=== PATIENT | female | born 1980 | race Hispanic/Latino ===

== ENCOUNTER → 2017-09-29 | Day surgery (SDC) | payer BC ==
[2017-09-24 10:34] LABS: ANION GAP 18.9 mmol/L (8-16); BLOOD UREA NITROGEN 15 mg/dL (7-26); BUN/CREATININE RATIO 19 (6-25); CALCIUM 10.1 mg/dL (8.4-10.2); CARBON DIOXIDE 24 mmol/L (22-29); CHLORIDE 104 mmol/L (98-107); CREATININE, SERUM 0.79 mg/dL (0.57-1.11); EST GLOMERULAR FILTRATION RATE > 60 ML/MIN (60-); GLUCOSE 397 mg/dL (74-118); POTASSIUM 5.9 mmol/L (3.5-5.1); SODIUM 141 mmol/L (136-145)
[~2017-09-29] MED LIST: AMOXICILLIN250 MG PO; BUPIVACAINE 0.25% 30ML SDV INJ ONE; DEXAMETHASONE SOD PHOS INJ 4 MG/ML VIAL ONE; DEXTROSE 5%/LACTATED RINGERS 1,000 ML IV ONE; DIGOXIN250 MCG PO; FENTANYL CITRATE/PF 100MCG/2 ML INJ ONE; FUROSEMIDE20 MG PO; GELATIN SPONGE SZ 100 ONE; HUMALOG100 UNIT/1 SQ; HYDROCODONE/APAP 7.5MG-325MG 1 EA TAB ONE; LEVEMIR100 UNIT/1 SC; LIDOCAINE 1% W/EPINEPHRINE 20 ML VIAL ONE; LIDOCAINE HCL 2% LOCAL INJ 5 ML SDV VIAL INJ ONE; LIDOCAINE JELLY 2% 10ML URO-JET ONE; LOVENOX60 MG/0.6 SC; METHOTREXATE2.5 MG PO; METOCLOPRAMIDE HCL 10 MG/2ML VIAL ONE; METOPROLOL SUCC50 MG PO; MIDAZOLAM HCL 2 MG/2 ML VIAL ONE; NAPROXEN250 MG PO; PLAQUENIL200 MG PO; PREDNISONE5 MG PO; PROPOFOL IV EMULSION 10 MG/ML 20 ML VIAL ONE; SCOPOLAMINE 1.5 MG PATCH ONE; SEVOFLURANE INHAL SOLN 250 ML PEN BTL ONE; SPIRONOLACTONE25 MG PO; TIZANIDINE HCL4 M1 PO
--- NOTE | 2017-09-29 14:55 | Operative Report ---
DATE OF PROCEDURE: September 29, 2017 PREOPERATIVE DIAGNOSIS: Bleeding hemorrhoids. POSTOPERATIVE DIAGNOSIS: Bleeding hemorrhoids. OPERATION PERFORMED: Hemorrhoidectomy. ANESTHESIA: General. COMPLICATIONS: None. ESTIMATED BLOOD LOSS: Minimal. DESCRIPTION OF PROCEDURE: With the patient lying in bed in the lithotomy position under good general anesthesia, the perineum was prepped with Betadine solution and draped in the usual manner. A complete anorectal block was then performed with 0.25% Marcaine and 1% lidocaine with epinephrine. Examination at this point revealed the patient had had a previous hemorrhoidectomy, but there were 2 bulging hemorrhoidal groups, one at the 12 o'clock and the other one at 8 o'clock position. Both of these were individually ligated with 0 chromic. There was also at the 5 o'clock position a group of external hemorrhoids with a clot, which were resected and this was then oversewn with 3-0 chromic sutures. A Gelfoam pack impregnated with Xylocaine was placed. Dressing was applied. The sponge, lap, and needle count was correct. Patient tolerated the procedure well and returned to the recovery room in stable condition. Job#: [id number] [facility]
== END | disposition home or self-care (01) ==
LOC: OR 07:15
PROVIDERS: ATTEND Surgery
DX: K64.4 Residual hemorrhoidal skin tags (principal); E11.9 Type 2 diabetes mellitus without complications; M32.9 Systemic lupus erythematosus, unspecified; I10 Essential (primary) hypertension; Z01.812 Encounter for preprocedural laboratory examination; Z99.81 Dependence on supplemental oxygen; Z86.711 Personal history of pulmonary embolism
CPT/HCPCS: 36415 ×2; 46250; 80048; 82948; 84132; J1100; J2001; J2250; J2765; J7120

== ENCOUNTER → 2017-11-16 | Outpatient (CLI) | payer BC, MEDICARE ==
[~2017-11-16] MED LIST changes: -BUPIVACAINE 0.25% 30ML SDV INJ ONE; -DEXAMETHASONE SOD PHOS INJ 4 MG/ML VIAL ONE; -DEXTROSE 5%/LACTATED RINGERS 1,000 ML IV ONE; -FENTANYL CITRATE/PF 100MCG/2 ML INJ ONE; -GELATIN SPONGE SZ 100 ONE; -HYDROCODONE/APAP 7.5MG-325MG 1 EA TAB ONE; +IOPAMIDOL 370 MG/ML 200 ML INFUS..BTL INJ ONE; -LIDOCAINE 1% W/EPINEPHRINE 20 ML VIAL ONE; -LIDOCAINE HCL 2% LOCAL INJ 5 ML SDV VIAL INJ ONE; -LIDOCAINE JELLY 2% 10ML URO-JET ONE; -METOCLOPRAMIDE HCL 10 MG/2ML VIAL ONE; -MIDAZOLAM HCL 2 MG/2 ML VIAL ONE; -PROPOFOL IV EMULSION 10 MG/ML 20 ML VIAL ONE; -SCOPOLAMINE 1.5 MG PATCH ONE; -SEVOFLURANE INHAL SOLN 250 ML PEN BTL ONE; +SODIUM CHLORIDE 0.9% 50ML 50 ML ONE
--- NOTE | 2017-11-16 20:04 | Diagnostic Imaging Report ---
CT CHEST WITH CONTRAST HISTORY: Chest pain, shortness of breath, history of PEs COMPARISON: None TECHNIQUE: CT scan of the chest WITH intravenous contrast, using PE protocol. The chest was scanned utilizing a multidetector helical scanner from the lung apex through the level of the adrenal glands. Thin section reconstructions were obtained with special concentration on the pulmonary arteries. IV CONTRAST: 100 cc of Isovue-370. PROTOCOL: PE RADIATION DOSE: Total DLP: 501.7 mGy*cm COMPLICATIONS: None DISCUSSION: Lungs: The lungs are well inflated and clear. Vessels: No filling defects are identified within the pulmonary arteries to the segmental levels. Airways: The major airways are clear. Pleura: There is no evidence of pleural effusion or pneumothorax. Heart and mediastinum: The heart and the mediastinum are normal. Abdomen: Limited evaluation of the upper abdomen. Partially visualized inferior vena cava filter. Lymph nodes: No pathologically enlarged lymph node identified. Bones: The visualized bony thorax is within normal limits. Soft tissues: Unremarkable IMPRESSION: No pulmonary embolus. Signed by: Dr. Zack Pappas D.O., M.M.M. on 11/16/2017 7:57 PM
== END ==
LOC: CT 17:34
PROVIDERS: ATTEND Internal Medicine
DX: R06.00 Dyspnea, unspecified (principal)
CPT/HCPCS: 71260; Q9967

== ENCOUNTER 2018-01-16 02:17 | Observation (INO) | payer BC, OTHER ==
[~2018-01-16] VITALS: Ht 162.6 cm; Wt 79.4 kg
[~2018-01-16 02:17] MED LIST changes: -IOPAMIDOL 370 MG/ML 200 ML INFUS..BTL INJ ONE; -SODIUM CHLORIDE 0.9% 50ML 50 ML ONE
--- OUTSIDE RECORDS SUMMARY | 2018-01-16 02:20 | XMS REPORT ---
Author Author [facility] Address Unknown Phone Unavailable Care Team Providers Care Survey Supervisor Name Role Phone BRENDAN AMMY PALOMO Unavailable NAYE SHAY Unavailable Unavailable BEAU FOWLER Unavailable Unavailable Problems This patient has no known problems. Allergies, Adverse Reactions, Alerts This patient has no known allergies or adverse reactions. Medications This patient has no known medications. Encounters Start Date/Time End Date/Time Encounter Type Admission Type Attending Clinicians Care Facility Care Department Encounter ID 2018-01-14 09:46:00 Inpatient [facility] MED [id number] Results Test Description Test Time Test Comments Text Results Atomic Results Result Comments CT CHEST W [place] [address] Patient Name: FRANCES BULL MR #: [id number] : 1980 Age/Sex: 37/F Req #: [id number] Adm Physician: Ordered by: NAYE SHAY MD Report #: [id number] Location: CT Room/Bed: Procedure: [id number] CT/CT CHEST W Exam Date: Exam Time: REPORT STATUS: Signed CT CHEST WITH CONTRAST HISTORY: Chest pain, shortness of breath, history of PEs COMPARISON: None TECHNIQUE: CT scan of the chest WITH intravenous contrast, using PE protocol. The chest was scanned utilizing a multidetector helical scanner from the lung apex through the level of the adrenal glands. Thin section reconstructions were obtained with special concentration on the pulmonary arteries. IV CONTRAST: 100 cc of Isovue-370. PROTOCOL: PE RADIATION DOSE: Total DLP: 501.7 mGy*cm COMPLICATIONS: None DISCUSSION: Lungs: The lungs are well inflated and clear. Vessels: No filling defects are identified within the pulmonary arteries to the segmental levels. Airways: The major airways are clear. Pleura: There is no evidence of pleural effusion or pneumothorax. Heart and mediastinum: The heart and the mediastinum are normal. Abdomen: Limited evaluation of the upper abdomen. Partially visualized inferior vena cava filter. Lymph nodes: No pathologically enlarged lymph node identified. Bones: The visualized bony thorax is within normal limits. Soft tissues: Unremarkable IMPRESSION : No pulmonary embolus. Signed by: Dr. Lynn Pappas D.O., M.M.M. on 11/16/2017 7:57 PM Dictated By: LYNN PAPPAS DO 56 Transcribed By: NICOLE on 11/16/171956 COPY TO: NAYE SHAY MD Stress Test - Treadmill ONLY [place] [address] Patient Name : FRANCES BULL MR #: [id number] : 1980 Age/Sex: 37/F Adm Physician : NAYE SHAY MD Admit Date : 09/10/17 Location : MED/SURG Room/Bed : [facility] REPORT: Cardiology Report DATE OF STUDY: September 15, 2017 PROCEDURE TITLE Rest stress single isotope SPECT imaging with pharmacologic stress and gated SPECT imaging. INDICATIONS: Chest pain. PROCEDURE: Pharmacologic stress test was performed with regadenoson, per protocol. The heart rate was 76 beats per minute and increased to 103 beats per minute during the regadenoson infusion. The rest blood pressure was 113/77 and decreased to 98/71 mmHg, which is a normal response. The patient denies developing any significant symptoms. The resting electrocardiogram demonstrated normal sinus rhythm. There were no ST segment changes consistent with myocardial ischemia. Myocardial perfusion imaging was performed at rest following the injection of 9 mCi of tetrofosmin. At peak pharmacologic effect the patient was injected with 32.8 mCi of tetrofosmin. Gated post stress tomographic imaging was performed. FINDINGS: The overall quality of study is fair. Left ventricular cavity is noted to be normal on the rest and stress studies. SPECT images demonstrate homogenous tracer distribution throughout the myocardium. Gated SPECT imaging reveals normal myocardial thickening and wall motion. The left ventricular ejection fraction was found to be 69%. IMPRESSION: Myocardial perfusion imaging is normal. Overall left ventricular systolic function was normal without regional wall motion abnormalities. Job#: [id number] Signature Date Dictated By: NAYE SHAY MD Transcribed By: [facility] on 09/15/17 <Electronically signed by NAYE SHAY MD> <<Signature on File>>09/28/17 7703 COPY TO: CHEST SINGLE (PORTABLE) [place] [address] Patient Name: FRANCES BULL MR #: [id number] : 1980 Age/Sex: 37/F Req #: [id number] Adm Physician: NAYE SHAY MD Ordered by: NAYE SHAY MD Report #: [id number] Location: MED/SURG Room/Bed: [facility] Procedure: [id number] DX/CHEST SINGLE (PORTABLE) Exam Date: 09/14/17 Exam Time: 1700 REPORT STATUS: Signed PROCEDURE: A single AP view of the chest. COMPARISON: The 09/10 INDICATIONS: LINE POSITION, CHEST PAIN FINDINGS: Lines/ tubes: Right upper extremity PICC in place with tip overlying cavoatrial junction. Lungs: The lungs are well inflated and clear. There is no evidence of pneumonia or pulmonary edema. Pleura: There is no pleural effusion or pneumothorax. Heart and mediastinum: The heart and the mediastinum are unremarkable. Bones: No acute bony abnormality. IMPRESSION: 1. No acute cardiopulmonary disease. 2. Satisfactory position of the right PICC line. No visible pneumothorax. Dictated by: Vikas Springer M.D. on 09/14/2017 at 17:31 Electronically approved by: Vikas Springer M.D. on 09/14/2017 at 17:31 Dictated By: VIKAS SPRINGER MD 30 Transcribed By: IRMA on 09/14/171730 COPY TO: NAYE SHAY MD VQ LUNG SCAN VENT PERFUSION [place] [address] Patient Name: FRANCES BULL MR #: [id number] : 1980 Age/Sex: 37/F Req #: [id number] Adm Physician: NAYE SHAY MD Ordered by: NAYE SHAY MD Report #: [id number] Location: MED/SURG Room/Bed: [facility] Procedure: [id number] NM/VQ LUNG SCAN VENT PERFUSION Exam Date: Exam Time: REPORT STATUS: Signed EXAM: VENTILATION PERFUSION LUNG SCAN INDICATION: 37 F with chest pain and SOB. CAGE. Has had 3 cardiac catheterizations. Was told had pulmonary hypertension although recent echocardiogram does not confirm pulmonary hypertension. 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 COMPARISON: Chest radiography 09/10/2017 DISCUSSION: Xenon-133 gas 20 mCi was administered via inhalation. Dynamic images of the lungs in the posterior projection were obtained through single breath and washout phases. Distribution of tracer activity appears physiologic throughout the lungs. Washout is very mildly delayed without evidence of air trapping. Perfusion images of the lungs in multiple projections were obtained following intravenous administration of 5.6 mCi of Tc-99m MAA. Distribution of tracer appears physiologic throughout the lungs. There are no segmental perfusion defects of any size. The contours of the lungs are well demarcated. The cardiomediastinal silhouette is unremarkable. IMPRESSION: 1. Scan findings represent a VERY LOW probability for acute pulmonary embolic disease based on the PIOPED II criteria. 2. Normal lung perfusion study excludes chronic thromboembolic pulmonary hypertension. 3. No pulmonary infarcts. 4. Ventilation study suggests very mild obstructive lung disease. Signed by: Dr. Sandra Saini M.D. on 09/13/2017 3:01 PM Dictated By: SANDRA SAINI MD 1501 Transcribed By: NICOLE on 09/13/17 1501 COPY TO: NAYE SHAY MD CHEST SINGLE (PORTABLE) [place] [address] Patient Name: FRANCES BULL MR #: [id number] : 1980 Age/Sex: 37/F Req #: [id number] Adm Physician: NAYE SHAY MD Ordered by: BEAU FOWLER MD Report #: [id number] Location: [facility] Room/Bed: [place] [address] Procedure: [id number] DX/CHEST SINGLE ( PORTABLE) Exam Date: 09/10/17 Exam Time: 2221 REPORT STATUS: Signed EXAM: CHEST SINGLE (PORTABLE), AP 1 view DATE: 2016 10:27 PM Time stamp on exam: 2222 hours INDICATION: PICC placement COMPARISON: AP view of the chest September 09, 2017 FINDINGS: LINES/TUBES: Interval placement of right approach PICC that terminates at the atriocaval junction. LUNGS: No consolidations or edema. PLEURA: No effusions or pneumothorax. HEART AND MEDIASTINUM: Normal size and contour. BONES AND SOFT TISSUES: No acute findings. IMPRESSION: Interval placement of right approach PICC that terminates at the atriocaval junction. Signed by: Dr. Nabeel Morfin M.D. on 09/10/2017 10:53 PM Dictated By : NABEEL MORFIN MD 52 Transcribed By: NICOLE on 09/10/172252 COPY TO: BEAU FOWLER MD CT BRAIN WO [place] [address] Patient Name: FRANCES BULL MR #: [id number] : 1980 Age/Sex: 37/F Req #: [id number] Adm Physician: Ordered by: BEAU FOWLER MD Report #: [id number] Location: ER Room/Bed: Procedure: [id number] CT/CT BRAIN WO Exam Date: 09/09/17 Exam Time: 2050 REPORT STATUS: Signed EXAMINATION: Head CT without contrast. HISTORY:Syncope. COMPARISON:None. TECHNIQUE: Multidetector axial images were obtained from the foramen magnum to the vertex without contrast. The images were reconstructed using brain and bone algorithms. Thin section brain images were reformatted into coronal and sagittal planes. Intravenous contrast: None IMAGE QUALITY: Acceptable. FINDINGS: Skull/scalp: No abnormality. Parenchyma: No abnormal density. No acute hemorrhage, mass or acute major vascular territorial infarct. Arteries: No density suggestive of thrombosis. Dural sinuses: No abnormal density suggestive of thrombosis. Ventricles: No hydrocephalus or displacement. Extra-axial spaces: No abnormal density. Brain volume: Normal for age. Craniocervical junction: No mass, Chiari malformation, or basilar invagination. Sella: No mass. Paranasal/ mastoid sinuses: Imaged portions unremarkable. IMPRESSION: No intracranial abnormality. Signed by: Dr. Cha Stapleton M.D. on 2016 9:03 PM Dictated By: CHA STAPLETON MD 02 Transcribed By: NICOLE on 09/09/172102 COPY TO: BEAU FOWLER MD CHEST SINGLE (PORTABLE) [place] [address] Patient Name: FRANCES BULL MR #: [id number] : 1980 Age/Sex: 37/F Req #: [id number] Adm Physician: Ordered by: BEAU FOWLER MD Report #: [id number] Location: ER Room/Bed: ___ Procedure: [id number] DX/CHEST SINGLE (PORTABLE) Exam Date: 09/09/17 Exam Time: 2048 REPORT STATUS: Signed EXAM: CHEST SINGLE (PORTABLE), AP 1 view DATE: 09/09/2017 8:02 PM Time stamp on exam : 2041 hours INDICATION: Shortness of breath, chest pain COMPARISON: None FINDINGS: LINES/TUBES: None LUNGS: No consolidations or edema. PLEURA: No effusions or pneumothorax. HEART AND MEDIASTINUM: Normal size and contour. BONES AND SOFT TISSUES: No acute findings. IMPRESSION: No acute thoracic abnormality. Signed by: Dr. Nabeel Morfin M.D. on 09/09/2017 9:30 PM Dictated By: NABEEL MORFIN MD 29 Transcribed By: NICOLE on 2129 COPY TO: BEAU FOWLER MD
[2018-01-16 03:22] LABS: BASOPHILS % 0.3 % (0.0-1.0); EOSINOPHILS # (AUTO) 0.1 (0.0-0.4); EOSINOPHILS % 1.2 % (0.0-6.0); HEMOGLOBIN 13.7 g/dL (12.0-16.0); LYMPHOCYTES # (AUTO) 2.2 (1.0-3.2); LYMPHOCYTES % 32.2 % (18.0-39.1); MEAN CORPUSCULAR HEMOGLOBIN 29.2 pg (28-32); MEAN CORPUSCULAR HGB CONC 35.1 g/dL (31-35); MEAN CORPUSCULAR VOLUME 83.2 fL (81-99); MONOCYTES # (AUTO) 0.3 (0.2-0.8); MONOCYTES % 4.2 % (4.4-11.3); NEUTROPHILS # (AUTO) 4.3 (2.1-6.9); NEUTROPHILS % 61.8 % (38.7-80.0); PLATELET COUNT 308 x10e3/uL (140-360); RED BLOOD COUNT 4.69 x10e6/uL (3.6-5.1); RED CELL DISTRIBUTION WIDTH 12.2 % (11.7-14.4)
[2018-01-16 03:29] LABS: CLARITY,URINE CLEAR (CLEAR); COLOR,URINE YELLOW (YELLOW)
[2018-01-16 03:30] LABS: BILIRUBIN,URINE NEGATIVE (NEGATIVE); KETONES,URINE 1+ (NEGATIVE); LEUKOCYTE ESTERASE ,URINE NEGATIVE (NEGATIVE); NITRITE,URINE NEGATIVE (NEGATIVE); PROTEIN,URINE DIPSTICK NEGATIVE (NEGATIVE); URINE UROBILINOGEN 0.2 mg/dL (0.2 - 1)
[2018-01-16 03:34] LABS: INR 0.96
[2018-01-16 03:35] LABS: PARTIAL THROMBOPLASTIN TIME 24.9 seconds (23.8-35.5)
[2018-01-16 03:39] LABS: RBC,URINE 0-5 /HPF (0-5)
[2018-01-16 03:40] LABS: BACTERIA,URINE MANY /HPF; EPITHELIAL CELLS,URINE FEW /LPF
--- NOTE | 2018-01-16 03:40 | Diagnostic Imaging Report ---
EXAM: CHEST SINGLE (PORTABLE), AP 1 view INDICATION: Chest pain COMPARISON: AP view of the chest September 14, 2017 FINDINGS: LINES/TUBES: None LUNGS: No consolidations or edema. PLEURA: No effusions or pneumothorax. HEART AND MEDIASTINUM: Normal size and contour. BONES AND SOFT TISSUES: No acute findings. IMPRESSION: No acute thoracic abnormality. Signed by: Dr. Nu Morfin M.D. on 01/16/2018 3:36 AM
[2018-01-16 03:44] LABS: ALANINE AMINOTRANSFERASE 30 IU/L (0-55); ALBUMIN 3.9 g/dL (3.5-5.0); ALBUMIN/GLOBULIN RATIO 0.8 (0.8-2.0); ALKALINE PHOSPHATASE 106 IU/L (40-150); ANION GAP 17.4 mmol/L (8-16); BLOOD UREA NITROGEN 11 mg/dL (7-26); BUN/CREATININE RATIO 14 (6-25); CALCIUM 9.9 mg/dL (8.4-10.2); CARBON DIOXIDE 22 mmol/L (22-29); CHLORIDE 94 mmol/L (98-107); CREATINE KINASE 160 IU/L (29-168); CREATININE, SERUM 0.77 mg/dL (0.57-1.11); EST GLOMERULAR FILTRATION RATE > 60 ML/MIN (60-); POTASSIUM 3.4 mmol/L (3.5-5.1); SODIUM 130 mmol/L (136-145)
[2018-01-16 03:49] LABS: GLUCOSE 475 mg/dL (74-118)
[2018-01-16] MEDS ORDERED: ONDANSETRON HCL INJ 2 MG/ML VIAL IV STA (03:58)
[2018-01-16] MEDS ORDERED: INSULIN REGULAR, HUMAN 100 UNIT/1 ML 3ML VIAL SQ ONE (04:00)
[2018-01-16] MEDS ORDERED: NITROGLYCERIN 2% OINT 1 GM PKT TOP ONE (04:00)
--- NOTE | 2018-01-16 06:11 | Diagnostic Imaging Report ---
EXAM: VQ LUNG SCAN VENT PERFUSION DATE: 01/16/2018 12:00 AM Time stamp on exam: 0555 hours INDICATION: Chest pressure COMPARISON: AP view of the chest January 16, 2018 FINDINGS: Ventilation images of the lungs were obtained following administration of 13 mCi of xenon-133 via aerosol. Distribution of tracer activity is mildly irregular throughout the lungs. No segmental ventilatory defects are identified. Normal washout. Perfusion images of the lungs in multiple projections were obtained following intravenous administration of 6mCi of Tc-99m MAA. Distribution of tracer activity is mildly irregular throughout the lungs. There are no segmental perfusion defects of any size. The perfusion images are well matched to the aerosol images. The cardiac silhouette is unremarkable. IMPRESSION: Scan findings represent a very low probability for acute pulmonary embolic disease based on the PIOPED II criteria. Signed by: Dr. Nu Morfin M.D. on 01/16/2018 6:08 AM
[2018-01-16] MEDS ORDERED: TRAMADOL HCL 50 MG TAB PO ONE (06:15)
[2018-01-16] MEDS ORDERED: TRAMADOL HCL 50 MG TAB PO PRN (06:30)
[2018-01-16] MEDS ORDERED: ONDANSETRON HCL INJ 2 MG/ML VIAL IV PRN (06:30)
[2018-01-16] MEDS ORDERED: DEXTROSE 50% SYRINGE 50 ML IV PRN (06:30)
--- OUTSIDE RECORDS SUMMARY | 2018-01-16 06:31 | XMS REPORT | Clinical Summary ---
Author Author [facility] Address Unknown Phone Unavailable Care Team Providers Care Land Acquisition Specialist Name Role Phone El Regan MD PCP Allergies Active Allergy Reactions Severity Noted Date Comments Riociguat Other (See Comments) 07/19/2017 Rash on entire body, shortness of breathing, chest discomfort Sulfamethoxazole-Trimetho Swelling, Rash Low 02/23/2016 Rash over entire body, prim swelling of throat. Side effect: yeast infection Ibuprofen Swelling 02/23/2016 Swelling of throat, chest discomfort. Hydrocodone-Acetaminophen Itching, GI Intolerance Medium 07/20/2017 Itching over entire body, nausea, dizziness Pineapple Swelling Medium 02/24/2016 Swelling of throat and mouth blisters. Alprazolam Other (See Comments) 02/23/2016 Few years ago, patient took six tablets of alprazolam (unknown dose) every 2 hours for a panic attack which resulted in loss of consciousness. Current Medications Prescription Sig. Disp. Refills Start End Date Status Date enoxaparin (LOVENOX) 80 Inject 80 mg under the Active mg/0.8 mL syringe skin every 12 (twelve) hours. digOXIN (LANOXIN) 250 mcg Take 250 mcg by mouth Active tablet daily. tiZANidine (ZANAFLEX) 4 Take 4 mg by mouth every Active MG tablet 8 (eight) hours as needed for muscle spasms. hydroxychloroquine Take 200 mg by mouth Active (PLAQUENIL) 200 mg tablet daily. lidocaine (XYLOCAINE) 2 % Apply 1 application Active jelly topically 4 (four) times a day as needed for mild pain (lichen sclerosus). triamcinolone (KENALOG) Apply 1 application Active 0.1 % ointment topically 3 (three) times a day as needed for irritation (lichen sclerosus). SUMAtriptan (IMITREX) 50 Take 50 mg by mouth once Active MG tablet as needed for migraine. May repeat in 2 hours if unresolved. Do not exceed 200 mg in 24 hours. metoprolol succinate XL Take 50 mg by mouth 2 Active (TOPROL-XL) 50 mg 24 hr (two) times a day. tablet insulin 70/30 NPH and Inject 15 Units under the 10 mL 12 12/25/19 Active regular human (HumuLIN skin 2 (two) times a day 18 18 70/30) 100 unit/mL before meals for 30 days. (70-30) injection metoprolol tartrate Take 50 mg by mouth 2 10/14/19 Discontin (LOPRESSOR) 25 MG tablet (two) times a day. 18 ued traMADol (ULTRAM) 50 mg Take 50 mg by mouth 3 04/16/20 Discontin tablet (three) times a day as 17 ued needed for moderate pain. HYDROcodone-acetaminophen Take 1 tablet by mouth 04/16/20 Discontin (NORCO) 7.5-325 mg per every 6 (six) hours as 17 ued tablet needed for moderate pain. methotrexate 2.5 MG Take 30 mg by mouth once 06/11/20 Discontin tablet a week. 17 ued insulin NPH and regular Inject 30 units with 20 mL 1 04/30/20 Discontin human (HumuLIN 70/30) 100 breakfast and 40 units 17 17 ued unit/mL (70-30) injection with dinner. insulin syringe-needle Injections twice a day. 100 each 1 04/30/20 05/03/20 Discontin U-100 (BD INSULIN SYRINGE 17 17 ued ULTRA-FINE) 1 mL 31 gauge x 5/16 syringe insulin NPH and regular Inject 40 units with 20 mL 1 05/03/20 Discontin human (HumuLIN 70/30) 100 breakfast and 60 units 17 17 ued unit/mL (70-30) injection with dinner. venlafaxine XR Take 1 capsule (75 mg 30 capsule 0 05/04/20 06/03/20 (EFFEXOR-XR) 75 MG 24 hr total) by mouth every 17 17 capsule morning for 30 days. insulin syringe-needle Injections twice a day. 100 each 1 05/03/20 08/19/20 Discontin U-100 (BD INSULIN SYRINGE 17 17 ued ULTRA-FINE) 1 mL 31 gauge x 5/16 syringe naproxen (NAPROSYN) 500 1 04/16/20 07/23/20 Discontin MG tablet 17 17 ued predniSONE (DELTASONE) 5 TK 1 T PO QD 0 05/04/20 06/11/20 Discontin mg tablet 17 17 ued hydroxychloroquine TK 1 T PO BID 0 05/04/20 06/11/20 Discontin (PLAQUENIL) 200 mg tablet 17 17 ued sildenafil (REVATIO) 20 Take 0.5 tablets (10 mg 135 tablet 3 06/11/20 08/19/20 Discontin mg tabletIndications: total) by mouth 3 (three) 17 17 ued Chest pain, unspecified times a day. type, Pulmonary hypertension spironolactone Take 1 tablet (25 mg 90 tablet 3 06/11/20 12/24/19 Discontin (ALDACTONE) 25 MG total) by mouth daily. 17 18 ued tabletIndications: Chest pain, unspecified type, Pulmonary hypertension methotrexate 2.5 MG Take 12 tablets (30 mg 48 tablet 0 06/11/20 Discontin tablet total) by mouth once a 17 17 ued week for 30 days. hydroxychloroquine Take 1 tablet (200 mg 180 tablet 3 06/11/2009/09 (PLAQUENIL) 200 mg tablet total) by mouth 2 (two) 17 17 times a day for 90 days. predniSONE (DELTASONE) 5 Take 1 tablet (5 mg 90 tablet 3 06/11/20 mg tablet total) by mouth daily for 17 17 90 days. ondansetron (ZOFRAN) 8 MG Take 8 mg by mouth every 08/19/20 Discontin tablet 8 (eight) hours as needed 17 ued for nausea or vomiting. promethazine (PHENERGAN) Take 25 mg by mouth every 08/19/20 Discontin 25 MG tablet 6 (six) hours as needed 17 ued for nausea or vomiting. acetaminophen (TYLENOL) Take 2 tablets (650 mg 20 tablet 0 07/23/20 08/19/20 Discontin 325 MG tablet total) by mouth every 6 17 17 ued (six) hours as needed for mild pain for up to 30 days. bisacodyl (DULCOLAX) 10 Insert 1 suppository (10 10 0 07/23/2008/19 Discontin mg suppository mg total) into the rectum suppository 17 17 ued daily as needed for constipation for up to 30 days. methotrexate 2.5 MG TAKE 12 TABLETS BY MOUTH 48 tablet 0 08/31/20 tablet ONCE A WEEK 17 17 LEVEMIR FLEXTOUCH 100 INJECT 30 UNITS SQ QHS 0 09/17/20 12/24/19 Discontin unit/mL (3 mL) insulin 17 18 ued pen metoprolol succinate XL TK 1 T PO BID 3 09/16/20 12/24/19 Discontin (TOPROL-XL) 50 mg 24 hr 17 18 ued tablet furosemide (LASIX) 20 mg TK 1 T PO QD 0 09/17/20 12/24/19 Discontin tablet 17 18 ued dicyclomine (BENTYL) 20 Take 1 tablet (20 mg 60 tablet 0 10/14/19 mg tablet total) by mouth 2 (two) 18 18 times a day for 30 days. insulin detemir U-100 Inject 30 Units under the 12/25/19 Discontin (LEVEMIR) 100 unit/mL skin nightly. 18 ued injection ciprofloxacin HCl (CIPRO) Take 1 tablet (250 mg 6 tablet 0 12/25/19 12/28/19 250 MG tabletIndications: total) by mouth 2 (two) 18 18 Chest pain in adult times a day for 3 days. Active Problems Problem Noted Date Uncontrolled type 2 diabetes mellitus 12/24/2017 E. coli UTI (urinary tract infection) 12/24/2017 Chest pain, pleuritic 12/23/2017 CAGE (dyspnea on exertion) 08/19/2017 Overview: Patient here for the first time for evaluation of CAGE. Sent by Dr Greenberg. Dr Greenberg evaluated her extensively for sob, CTEPH or PH. Overall everything came out to be equivocal. She did exercise heart cath and that did show exercise related PH but increased wedge and no gradient across pulmonary vasculature. This patient also carries diagnosis of PE X3, DVT X5. On exam : no specific signs to suggest any obvious disease process Also has diagnosis of RA and Lupus. She is on methotrexate 30 mg weekly and prednisone She is in [facility] L ast Assessment & Plan: Overall, I do not believe that she has significant chronic PE disease, if at all may be level. I could not see PA gram images. Portal didn't open, but called and discussed with Dr Greenberg and based on what he said. She was tried on adempas, a trial but didn't tolerate it well and no improvement noticed either and was stopped. Dr Greenberg thinks she may possibly have CTED. However, that still doesn't explain her out of proportion dyspnea. For the last few months she has been having cough as well I am not sure, based on the interview, her answers do not make sense. SOB laying in bed. Doesn't qualify as orthopnea or PND. 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 However, this doesn't undermine her original CT diseases. RTC In 4 weeks Pulmonary hypertension 07/20/2017 Uncontrolled pain 04/26/2017 Hyperglycemia 04/25/2017 Pulmonary hypertension associated with systemic disorder 02/27/2016 Overview: Has CTD and prior PE's. Has been evaluated on multiple occasions. She has had exercise cath showing no gradient. Report in epic Last Assessment & Plan: Doesn't clearly meet requirements for pharmacological therapy However, diagnosis needs to be established Will get CPET once the initial testing results are negative Chest pain 02/24/2016 Palpitations 02/24/2016 Syncope 02/24/2016 Type 2 diabetes mellitus with hyperglycemia 02/24/2016 SLE (systemic lupus erythematosus) 02/24/2016 Hypokalemia 02/24/2016 Encounters Date Type Specialty Care Team Description 12/23/2017 Emergency General Internal Medicine Leon Alva MD Chest pain in adult - Lynda Leon MD (Primary Dx); 12/24/2017 Hyperglycemia without ketosis; Pulmonary hypertension associated with systemic disorder 12/23/2017 Telephone Cardiology Chaya Martinez, RN Return Call 10/14/2017 Emergency Emergency Medicine Rochelle Cadet, Lower abdominal pain DO (Primary Dx) 09/23/2017 Orders Only Cardiology Chester Greenberg MD 09/09/2017 Documentation Pulmonology Adal Castillo MD 08/20/2017 Refill Cardiology Chester Greenberg MD Med Refill 08/19/2017 [facility] Pulmonology Adal Castillo MD CAGE (dyspnea on Encounter exertion); Other pulmonary embolism without acute cor pulmonale, unspecified chronicity 08/19/2017 Office Visit Pulmonology Adal Castillo MD CAGE (dyspnea on exertion) (Primary Dx); Other pulmonary embolism without acute cor pulmonale, unspecified chronicity; Pulmonary hypertension associated with systemic disorder 08/09/2017 Orders Only Pulmonology Keely Ma, SOB ( shortness of breath) RT (Primary Dx) 07/21/2017 Procedure Pass Procedural Cardiology 07/21/2017 Surgery Procedural Cardiology Lavelle Chamberlain MD Cv right heart cath [13777 (CPT )] 07/19/2017 [facility] General Internal Medicine Heron Donald - Encounter MD Lane 07/23/2017 Etelvina aGbriel MD 06/11/2017 Office Visit Cardiology Chester Greenberg MD Chest pain, unspecified type (Primary Dx); Pulmonary hypertension 05/17/2017 Telephone Cardiology Nigel Armstrong MA Medication Question (Adempas) 05/10/2017 Telephone Cardiology Tomer Jordan LVN Appointment 05/10/2017 Orders Only Cardiology Chester Greenberg MD Pulmonary hypertension (Primary Dx) 04/24/2017 Hospital Cardiology Markus Reynolds MD Hyperglycemia ( Primary - Encounter Merly Wiggins MD Dx); 05/03/2017 Mariana Marquez, Pulmonary hypertension MD associated with systemic Josiah Dietrich MD disorder 04/24/2017 Telephone Cardiology Sandra Ramsey MD Hyperglycemia 04/16/2017 Office Visit Cardiology Chester Greenberg MD Pulmonary hypertension (Primary Dx) after 01/15/2017 Immunizations Name Dates Previously Given Next Due FLUCELVAX QUAD PF (0.5mL 07/20/2017 syringe) Pneumococcal Conjugate 07/23/2017 13-[facility]ent Social History Tobacco Use Types Packs/Day Years Used Date Never Smoker Smokeless Tobacco: Never Used Alcohol Use Drinks/Week oz/Week Comments No Sex Assigned at Date Recorded Not on file Last Filed Vital Signs Vital Sign Reading Time Taken Blood Pressure 119/71 12/24/2017 12:29 PM CDT Pulse 75 12/24/2017 12:29 PM CDT Temperature 36.7 C (98.1 F) 12/24/2017 12:29 PM CDT Respiratory Rate 14 12/24/2017 12:29 PM CDT Oxygen Saturation 91% 12/24/2017 2:53 PM CDT Inhaled Oxygen - - Concentration Weight 79.3 kg (174 lb 14.4 oz) 12/23/2017 11:20 PM CDT Height 162.6 cm (5' 4") 12/23/2017 11:20 PM CDT Body Mass Index 30.02 12/23/2017 11:20 PM CDT Plan of Treatment Health Maintenance Due Date Last Done Comments FOOT EXAM 1989 OPHTHALMOLOGY EXAM 1989 PAP SMEAR 2000 INFLUENZA VACCINE 05/04/2018 07/20/2017 Implants Implanted Type Area Finger Buffs Assembler Device Expiration Model / Identifier Date Serial / Lot Device Vasclr Clsr Vasoactive Surgical DAIG MASON [id number] / Intstnl Peptd 6fr Angio-Seal - Implants; / [id number] Expanders; Implanted: 02/26/2016 (Quantity not Extenders; on file) Surgical Wires Procedures Procedure Name Priority Date/Time Associated Diagnosis Comments ECHOCARDIOGRAM 2D Routine 12/23/2017 Results for this COMPLETE W MMODE SPECTRAL 10:39 PM CDT procedure are in the [facility] (21490) results section. CV CARDIAC EVENT MONITOR Routine 09/23/2017 12:00 AM ELECTRICAL SERVICE TECHNICIAN CV RIGHT HEART CATH Routine 07/21/2017 Results for this 1:20 PM CDT procedure are in the results section. ECHOCARDIOGRAM 2D Routine 07/20/2017 Results for this COMPLETE W MMODE SPECTRAL 11:02 AM CDT procedure are in the [facility] (40431) results section. ECHOCARDIOGRAM 2D Routine 04/26/2017 Results for this COMPLETE W MMODE SPECTRAL 10:42 AM CDT procedure are in the [facility] (77853) results section. after 01/15/2017 Results * Homocystine, plasma (12/24/2017 6:30 PM) Component Value Ref Range Homocysteine 8.0 0.0 - 15.0 umol/L Comment: The risk for coronary vascular disease increases progressively with homocysteine concentration. A 3.4 times greater risk is associated with a homocysteine concentration of greater than 15.8 umol/L as compared to a concentration below 14.1 umol/L. Specimen Performing Laboratory Plasma specimen [facility] [place] [address] * Prothrombin mutation, factor II, by PCR (12/24/2017 6:30 PM) Component Value Ref Range Prothrombin gene mutation Normal Normal Prothrombin gene mutation See link below for PDF Lab ReportComment: Specimen Performing Laboratory Blood [facility] [place] [address] * Functional protein S (12/24/2017 6:30 PM) Component Value Ref Range Functional protein S 120 58 - 160 % Comment: Functional Protein S performed. If result is decreased Total and Free Protein S Antigen will be performed. Specimen Performing Laboratory Blood [facility] [place] [address] * Functional protein C (12/24/2017 6:30 PM) Component Value Ref Range Functional protein C 156 70 - 165 % Specimen Performing Laboratory Blood [facility] [place] [address] * Lupus anticoagulant panel (12/24/2017 6:30 PM) Component Value Ref Range Prothrombin time 12.7 12.0 - 15.0 sec INR 0.9 Comment: The International Normalized Ratio (INR) is a therapeutic monitoring tool for patients who are stable on oral anticoagulant therapy. An INR of 2.0-3.0 is suggested for deep vein thrombosis/pulmonary embolism. PTT 25.4 23.0 - 36.0 sec Comment: PTT therapeutic range for unfractionated heparin is 61.0-112.0 seconds which corresponds to Anti-Xa 0.3-0.7 U/ml. PTT lupus anticoagulant 26.3 (L) 27.0 - 38.0 sec Comment: Lupus anticoagulant (LA) panel consists of PT, PTT, PTT-LA, and DRVVT. If the PTT-LA is above the normal range, the hexagonal phospholipid will be performed. If the DRVVT is above the normal range, the DRVVC confirmatory test will be performed. A normal result for both the DRVVT and the PTT-LA means the patient is negative for lupus anticoagulant. The patient is considered positive for lupus anticoagulant if either the Ratio SCR/CONF or the hexagonal phospholipid is high (positive) on two occassions at least six weeks apart. Clinical confirmation is also required for diagnosis. DRVVT 32.3 29.0 - 46.0 sec Specimen Performing Laboratory Blood [facility] DEPARTMENT PATHOLOGY [facility] MEDICINE [address] [place] [address] * Factor V leiden by PCR (12/24/2017 6:30 PM) Component Value Ref Range Factor V Leiden Normal Factor V Leiden See link below for PDF Lab ReportComment: Specimen Performing Laboratory Blood [facility] [place] [address] * Antithrombin III level (12/24/2017 6:30 PM) Component Value Ref Range Antithrombin III 116 80 - 130 % Specimen Performing Laboratory Blood [facility] [place] [address] * POC glucose (12/24/2017 5:28 PM) Only the most recent of 66 results within the time period is included. Component Value Ref Range POC glucose 309 (H) 65 - 99 mg/dL Comment: [facility] Notified RN Meter ID: [id number] Medicaid Collection Specialist: Abilio Littlejohn Specimen Performing Laboratory [facility] PATHOLOGY [facility] MEDICINE [address] [place] [address] * Cardiolipin antibodies (12/24/2017 4:25 PM) Component Value Ref Range Cardiolipin IgG 1 0 - 14 GPL Comment: Negative=<15 GPL Indeterminate=15-20 GPL Positive=>20 GPL Cardiolipin IgM 6 0 - 12 MPL Comment: Negative=<13 MPL Indeterminate=13-20 MPL Positive=>20 MPL Specimen Performing Laboratory Blood [facility] DEPARTMENT OF PATHOLOGY AND [facility] MEDICINE [address] [place] [address] * CT Angiogram Pe Chest (12/24/2017 2:33 PM) Only the most recent of 3 results within the time period is included. Specimen [place] [address] Narrative EXAMINATION: CT ANGIOGRAM PE CHEST CLINICAL HISTORY: History of DVT PE per pt. Pleuritic chest pain TECHNIQUE: CT angiographic images of the chest were obtained during intravenous administration of iodinated contrast. Computerized reformatted images and 3-D MIP images were also obtained and archived (CT pulmonary embolus protocol). CT imaging was performed with iterative reconstruction techniques and/or automated exposure control to reduce radiation dose. COMPARISON: Chest CT 07/21/2017 IMPRESSION: No acute abnormality. FINDINGS: 1.There are no pulmonary emboli. 2.Thoracic aorta is normal. 3.Mild scattered bilateral areas of subsegmental atelectasis are present. Otherwise the lungs are clear. 4.There is no pleural fluid or pneumothorax. 5.There is no adenopathy. 6.Heart size upper limit of normal. No pericardial fluid is present. 7.There is no significant abnormality in the imaged upper abdomen. An IVC filter is seen in the IVC segment between the liver and renal veins, although incompletely imaged. 8.There is no significant skeletal abnormality. [id number] Procedure Note Hm Interface, Radiology Results Incoming - 12/24/2017 2:43 PM CDT EXAMINATION: CT ANGIOGRAM PE CHEST CLINICAL HISTORY: History of DVT PE per pt. Pleuritic chest pain TECHNIQUE: CT angiographic images of the chest were obtained during intravenous administration of iodinated contrast. Computerized reformatted images and 3-D MIP images were also obtained and archived (CT pulmonary embolus protocol). CT imaging was performed with iterative reconstruction techniques and/or automated exposure control to reduce radiation dose. COMPARISON: Chest CT 07/21/2017 IMPRESSION: No acute abnormality. FINDINGS: 1. There are no pulmonary emboli. 2. Thoracic aorta is normal. 3. Mild scattered bilateral areas of subsegmental atelectasis are present. Otherwise the lungs are clear. 4. There is no pleural fluid or pneumothorax. 5. There is no adenopathy. 6. Heart size upper limit of normal. No pericardial fluid is present. 7. There is no significant abnormality in the imaged upper abdomen. An IVC filter is seen in the IVC segment between the liver and renal veins, although incompletely imaged. 8. There is no significant skeletal abnormality. [id number] * Estimated GFR (12/24/2017 3:28 AM) Only the most recent of 7 results within the time period is included. Component Value Ref Range GFR Non Af Amer >90 mL/min/1.73 m2 GFR Af Amer >90 mL/min/1.73 m2 Comment: Chronic kidney disease: <60 mL/min/1.73m2 Kidney failure: <15 mL/min/1.73m2 The estimated GFR is calculated from the IDMS-traceable Modification of Diet in Renal Disease Equation. The accuracy of the calculation is poor when the creatinine is normal. Calculated values >90 mL/min/1.73m2 are not reported. This equation has not been validated in children (<18 years), women, the elderly (>70 years), or ethnic groups other than Caucasians and Americans. Specimen Performing Laboratory Plasma specimen [facility] DEPARTMENT OF PATHOLOGY AND GENOMIC MEDICINE [address] [place] [id number] * Phosphorus level (12/24/2017 3:28 AM) Only the most recent of 2 results within the time period is included. Component Value Ref Range Phosphorus 3.4 2.4 - 4.5 mg/dL Specimen Performing Laboratory Plasma specimen [facility] DEPARTMENT OF PATHOLOGY AND [address] [address] * Magnesium level (12/24/2017 3:28 AM) Only the most recent of 5 results within the time period is included. Component Value Ref Range Magnesium 1.6 1.6 - 2.6 mg/dL Specimen Performing Laboratory Plasma specimen [facility] DEPARTMENT OF PATHOLOGY AND [address] [address] * Comprehensive metabolic panel (12/24/2017 3:28 AM) Only the most recent of 3 results within the time period is included. Component Value Ref Range Sodium 138 135 - 148 mEq/L Potassium 3.6 3.5 - 5.0 mEq/L Chloride 98 98 - 112 mEq/L CO2 25 24 - 31 mEq/L Anion gap 15 7 - 15 mEq/L Comment: Starting from January , anion gap calculation no longer incorporates potassium. Please note the change. BUN 16 6 - 20 mg/dL Creatinine 0.4 (L) 0.5 - 0.9 mg/dL Glucose 364 (H) 65 - 99 mg/dL Calcium 8.9 8.3 - 10.2 mg/dL Protein 7.0 6.3 - 8.3 g/dL Comment: 4.6-7.0 g/dL 1 week 4.4-7.6 g/dL 7 months-1year 5.1-7.3 g/dL 1-2 years 5.6-7.5 g/dL >3 years 6.0-8.0 g/dL 18-150 6.3-8.3 g/dL Albumin 3.0 (L) 3.5 - 5.0 g/dL A/G ratio 0.8 0.7 - 3.8 Alkaline phosphatase 89 35 - 104 U/L AST 30 10 - 35 U/L ALT 27 5 - 50 U/L Total bilirubin <0.2 0.0 - 1.2 mg/dL Specimen Performing Laboratory Plasma specimen [facility] DEPARTMENT OF PATHOLOGY AND GENOMIC MEDICINE [address] [place] [id number] * Hemoglobin A1c (12/24/2017 3:15 AM) Only the most recent of 4 results within the time period is included. Component Value Ref Range Hemoglobin A1C 12.7 (H) 4.0 - 5.6 % Comment: HbA1c cutoffs for diagnosing diabetes: 4.0% - 5.6%=normal 5.7% - 6.4%=increased risk for diabetes (prediabetes) >=6.5%=diabetes Goals for glycemic control (ADA 2016) < 7.0% Target for non adults with diabetes. More or less stringent targets may be appropriate for individual patients. <7.5% Target for Children and adolescents with type 1 diabetes. Specimen Performing Laboratory Blood [facility] DEPARTMENT OF PATHOLOGY AND GENOMIC MEDICINE [address] [place] [id number] * CBC with platelet and differential (12/24/2017 3:01 AM) Only the most recent of 8 results within the time period is included. Component Value Ref Range WBC 5.43 4.50 - 11.00 k/uL RBC 3.90 (L) 4.20 - 5.50 m/uL HGB 11.5 (L) 12.0 - 16.0 g/dL HCT 33.2 (L) 37.0 - 47.0 % MCV 85.1 82.0 - 100.0 fL MCH 29.5 27.0 - 34.0 pg MCHC 34.6 31.0 - 37.0 g/dL RDW - SD 38.5 37.0 - 55.0 fL MPV 9.7 8.8 - 13.2 fL Platelet count 259 150 - 400 k/uL Nucleated RBC 0.00 /100 WBC Neutrophils 53.0 39.0 - 69.0 % Lymphocytes 39.2 25.0 - 45.0 % Monocytes 5.9 0.0 - 10.0 % Eosinophils 1.1 0.0 - 5.0 % Basophils 0.4 0.0 - 1.0 % Immature granulocytes 0.4Comment: "Immature granulocytes" 0.0 - 1.0 % (promyelocytes, myelocytes, metamyelocytes) Specimen Performing Laboratory Blood [facility] DEPARTMENT OF PATHOLOGY AND [facility] MEDICINE [address] [place] [id number] * Troponin (12/23/2017 11:30 PM) Only the most recent of 9 results within the time period is included. Component Value Ref Range Troponin <0.30 0.00 - 0.30 ng/mL Comment: 0.30 - 1.49 ng/ml May indicate increased risk of acute coronary syndrome. >=1.5 ng/ml Consistent with acute myocardial infarction. The diagnostic value of a single normal or non-diagnostic result is questionable. Serial samples at 2-6 hour intervals are required to rule out acute myocardial injury. Specimen Performing Laboratory Plasma specimen [facility] OF PATHOLOGY AND [address] [address] * Lipid panel (12/23/2017 10:53 PM) Only the most recent of 2 results within the time period is included. Component Value Ref Range Cholesterol 227 (H) <200 mg/dL Triglycerides 703 (H) <150 mg/dL HDL cholesterol 34 (L) >40 mg/dL LDL cholesterol 133 (H)Comment: Result obtained by direct LDL <100 mg/dL measurement Lipid panel SeeBelow interpretation Comment: Total Cholesterol (mg/dL) <200 Desirable 200-239 Borderline-high >=240 High Triglycerides (mg/dL) <150 Normal 150-199 Borderline-high 200-499 High >=500 Very high HDL Cholesterol (mg/dL) <40 Low (male) <40 Low (female) LDL Cholesterol (mg/dL) <100 Optimal 100-129 Near or above optimal 130-159 Borderline-high 160-189 High >=190 Very high Risk Catergories that modify LDL goals. Risk Catergories LDL goal (mg/dL) CHD and CHD risk equivalent <100 (10-year risk >20%) Multiple (2+) risk factors <130 (10-year risk=<20%) 0-1 risk factors <160 (<10-year risk) Defining levels of lipids in metabolic syndrome Triglycerides >=150 mg/dL HDL Cholesterol Men <40 mg/dL Women <40 mg/dL Non-HDL cholesterol is a second target for therapy in persons with high triglycerides (>=200 mg/dL) Specimen Performing Laboratory Plasma specimen [facility] DEPARTMENT OF PATHOLOGY AND GENOMIC MEDICINE [address] [place] [address] * Echocardiogram complete w contrast and 3D if needed (12/23/2017 10:39 PM) Specimen Performing Laboratory [facility] [address] [id number] Narrative Echocardiography Report [id number] [facility] [place] [address] Pat.Name:KELLY FERNANDO.ID:[id number] .Date: 12/23/2017 Refer.MD:LYNDA LEON MD Exam Time: 9:02:00 PMStudy Type:Routine Echo Height:64inWeight:180lb BSA: 1.87 m2 DOBAge:1979,37Y Sex: FEMALEBP: 135/90 HR:80 bpmSonogrphr: HUMBLE Thomas Pat. Stat.:Inpatient Room:ED - 34 Study Status:Final Echo Event ID:[id number] Order ID:[id number] Reason for Study:RV , PA pressures History / Clinical:Chest Pain, Shortness of Breath, Cancer, Diabetes, Pulmonary Hypertension, DVT; Pulmonary Emboli, Lupus Procedures:2D Echo, Colorflow Doppler, Portable Race:C SUMMARY: LV size is normal. LV EF is hyperdynamic. Estimated EF is >70%. RV size is normal. RV systolic function is normal. FINDINGS: LV: LV size is normal. LV EF is hyperdynamic. Overall wall motionis hyperdynamic. Estimated EF is >70%. RV: RV size is normal. RV systolic function is normal. LA: LA size is normal. RA: RA size is normal. AO: Aortic root diameter is normal. SANDRA: No pericardial effusion. AV: No structural AV abnormalities noted. MV: No structural MV abnormalities noted. PV: No structural PV abnormalities noted. TV: No structural TV abnormalities noted. Blanc: Normal diastolic function. Other:Insufficient TR jet to estimate PA systolic pressure. MEASUREMENTS: 2D Parasternal [place] LVOT 2 cmLA Ds 3.3 cm LVIDd4.5 cmIndex 2.4 cm/m Ao An2 cm LVIDs2.8 cmAo Rtd 2.8 cm Index1.5 cm/m LV%fs 37.8 % LV Mass 132.8 g(87-129) IVSd 1.1 cmLVM Index 71 g/m2 LVPWd0.7 cmRWT 0.3 LA Sng Plane LA Area 18.2 cm2(8.8-23.4) LA Vol50.3 ml Index26.9 ml/m LA LngAx 5.4 cm RA Sng Plane RA Area9.6 cm2(8.3-19.5) RA Vol 20.1 ml Index10.7 ml/m RA LngAx 3.9 cm DOPPLER LVOT For Flow LVOT Area3.1 cm2 LVOT SV 59.7 ml LVOTpkVel 98.3 cm/sHR 82.1 bpm LVOTpkPG 3.9 mmHgLVOT CO 4.9 l/min LVOTmnPG 1.8 mmHgLVOT CI 2.6 l/m/m2 LVOT TVI19 cm Signed 12/24/2017 09:19 AM Yosvany Jon M.D. Procedure Note Interface, Radiology Results In - 12/24/2017 9:19 AM CDT Echocardiography Report [id number] [address] Pat.Name: KELLY FERNANDO Pat.ID: [id number] .Date: 12/23/2017 Refer.MD: LYNDA LEON MD Exam Time: 9:02:00 PM Study Type:Routine Echo Height: 64in Weight: 180lb BSA: 1.87 m2 Age: 11 1980,37Y Sex: FEMALE BP: 135/90 HR: 80 bpm Sonogrphr: [place] [facility] Pat. Stat.:Inpatient Room: ED - 34 Study Status:Final Echo Event ID:[id number] Order ID: [id number] Reason for Study:RV , PA pressures History / Clinical:Chest Pain, Shortness of Breath, Cancer, Diabetes, Pulmonary Hypertension, DVT; Pulmonary Emboli, Lupus Procedures:2D Echo, Colorflow Doppler, Portable Race: C SUMMARY: LV size is normal. LV EF is hyperdynamic. Estimated EF is >70%. RV size is normal. RV systolic function is normal. FINDINGS: LV: LV size is normal. LV EF is hyperdynamic. Overall wall motion is hyperdynamic. Estimated EF is >70%. RV: RV size is normal. RV systolic function is normal. LA: LA size is normal. RA: RA size is normal. AO: Aortic root diameter is normal. SANDRA: No pericardial effusion. AV: No structural AV abnormalities noted. MV: No structural MV abnormalities noted. PV: No structural PV abnormalities noted. TV: No structural TV abnormalities noted. Blanc: Normal diastolic function. Other: Insufficient TR jet to estimate PA systolic pressure. MEASUREMENTS: 2D Parasternal [place] LVOT 2 cm LA Ds 3.3 cm LVIDd 4.5 cm Index 2.4 cm/m Ao An 2 cm LVIDs 2.8 cm Ao Rtd 2.8 cm Index 1.5 cm/m LV%fs 37.8 % LV Mass 132.8 g (87-129) IVSd 1.1 cm LVM Index 71 g/m2 LVPWd 0.7 cm RWT 0.3 LA Sng Plane LA Area 18.2 cm2 (8.8-23.4) LA Vol 50.3 ml Index 26.9 ml/m LA LngAx 5.4 cm RA Sng Plane RA Area 9.6 cm2 (8.3-19.5) RA Vol 20.1 ml Index 10.7 ml/m RA LngAx 3.9 cm DOPPLER LVOT For Flow LVOT Area 3.1 cm2 LVOT SV 59.7 ml LVOTpkVel 98.3 cm/s HR 82.1 bpm LVOTpkPG 3.9 mmHg LVOT CO 4.9 l/min LVOTmnPG 1.8 mmHg LVOT CI 2.6 l/m/m2 LVOT TVI 19 cm Signed 12/24/2017 09:19 AM Yosvany Jon M.D. * Beta hydroxybutyrate (12/23/2017 2:43 PM) Only the most recent of 2 results within the time period is included. Component Value Ref Range Beta hydroxybutyrate 0.43 (H) 0.02 - 0.27 mmol/L Specimen Performing Laboratory Serum [facility] DEPARTMENT OF PATHOLOGY AND GENOMIC MEDICINE [address] [place] [address] * XR Chest 1 Vw (12/23/2017 12:01 PM) Specimen Performing Laboratory [facility] [address] [place] [address] Narrative XR CHEST 1 VW CLINICAL INDICATION:Chest Pain COMPARISON:10/14/2017 IMPRESSION: The lungs are clear without acute cardiopulmonary disease. Heart and mediastinal contours are within normal limits. Bones are unremarkable. IVC filter is noted with relative not expanded tines inferiorly as before. No active disease or change. Thank you for allowing us to participate in the care of your patient. [facility]-[id number] Procedure Note Interface, Radiology Results Incoming - 12/23/2017 12:10 PM CDT XR CHEST 1 VW CLINICAL INDICATION: Chest Pain COMPARISON: 10/14/2017 IMPRESSION: The lungs are clear without acute cardiopulmonary disease. Heart and mediastinal contours are within normal limits. Bones are unremarkable. IVC filter is noted with relative not expanded tines inferiorly as before. No active disease or change. Thank you for allowing us to participate in the care of your patient. [facility]-[id number] * Urinalysis screen and microscopy, with reflex to culture (12/23/2017 11:38 AM) Only the most recent of 3 results within the time period is included. Component Value Ref Range Specimen site Clean catch Color, UA Straw Appearance, UA Hazy Specific gravity, UA 1.031 1.001 - 1.035 pH, UA 6.0 5.0 - 8.5 Protein, UA Negative Negative Glucose, UA 3+ (A) Negative Ketones, UA Negative Negative Bilirubin, UA Negative Negative Blood, UA Negative Negative Nitrite, UA Negative Negative Urobilinogen, UA <2.0 <2.0 Leukocyte esterase, UA Trace (A) Negative Epithelial cells, UA 5 /HPF WBC, UA 14 (H) 0 - 4 /HPF RBC, UA 3 (H) 0 - 2 /HPF Bacteria, UA None seen None seen Yeast, UA None seen Yeast with pseudohyphae, None seen UA Specimen Performing Laboratory Urine [facility] DEPARTMENT OF PATHOLOGY AND GENOMIC MEDICINE [address] [place], [place] [id number] * Gram stain (12/23/2017 11:36 AM) Component Value Ref Range Gram stain result Rare WBC's Occasional Gram negative rods Comment: Specimen Information Specimen Source: Urine Specimen Site: Clean catch Specimen Performing Laboratory Urine [facility] DEPARTMENT OF PATHOLOGY AND GENOMIC MEDICINE [address] [place] [address] * Urine culture (12/23/2017 11:36 AM) Only the most recent of 3 results within the time period is included. Component Value Ref Range Urine culture isolate Escherichia coli >10-5 cfu/ml (A) Comment: Specimen Information Specimen Source: Urine Specimen Site: Clean catch Urine culture isolate Lactobacillus species >10-5 cfu/ml (A) Urine culture isolate Gram positive anmol <10-1 cfu/ml (A) Specimen Performing Laboratory Urine [facility] DEPARTMENT OF PATHOLOGY AND GENOMIC MEDICINE [address] [place] [address] Organism Antibiotic Method Susceptibility Escherichia coli Ampicillin KELSI <=2 mcg/mL: Susceptible Escherichia coli Amoxicillin/Clavulanate KELSI 4/2 mcg/mL: Susceptible Escherichia coli Amikacin KELSI <=4 mcg/mL: Susceptible Escherichia coli Aztreonam KELSI <=1 mcg/mL: Susceptible Escherichia coli Ceftazidime KELSI <=0.5 mcg/mL: Susceptible Escherichia coli Ciprofloxacin KELSI <=0.5 mcg/mL: Susceptible Escherichia coli Ceftriaxone KELSI <=0.5 mcg/mL: Susceptible Escherichia coli Cefuroxime Sodium KELSI <=4 mcg/mL: Susceptible Escherichia coli Cefazolin KELSI <=1 mcg/mL: Susceptible Escherichia coli Cefipime KELSI <=0.5 mcg/mL: Susceptible Escherichia coli Nitrofurantoin KELSI 32 mcg/mL: Susceptible Escherichia coli Cefoxitin KELSI <=4 mcg/mL: Susceptible Escherichia coli Gentamicin KELSI <=1 mcg/mL: Susceptible Escherichia coli Imipenem KELSI <=0.25 mcg/mL: Susceptible Escherichia coli Levofloxacin KELSI <=1 mcg/mL: Susceptible Escherichia coli Meropenem KELIS <=0.125 mcg/mL: Susceptible Escherichia coli Tobramycin KELSI 1 mcg/mL: Susceptible Escherichia coli Ampicillin/Sulbactam KELSI 4/2 mcg/mL: Susceptible Escherichia coli Trimethoprim/Sulfamethoxa KELSI <=0.5/9.5 mcg/mL: zole Susceptible Escherichia coli Tetracycline KELSI <=1 mcg/mL: Susceptible Escherichia coli Piperacillin/Tazobactam KELSI <=2/4 mcg/mL: Susceptible Escherichia coli Ertapenem KELSI <=0.125 mcg/mL: Susceptible Escherichia coli Tigecycline KELSI <=0.5 mcg/mL: Susceptible * Partial thromboplastin time, activated (12/23/2017 11:20 AM) Only the most recent of 4 results within the time period is included. Component Value Ref Range PTT 25.5 23.0 - 36.0 sec Comment: PTT therapeutic range for unfractionated heparin is 61.0-112.0 seconds which corresponds to Anti-Xa 0.3-0.7 U/ml. Specimen Performing Laboratory Blood [facility] DEPARTMENT OF PATHOLOGY AND GENOMIC MEDICINE [address] [place] [address] * Prothrombin time with INR (12/23/2017 11:20 AM) Only the most recent of 4 results within the time period is included. Component Value Ref Range Prothrombin time 12.3 12.0 - 15.0 sec INR 0.9 Comment: The International Normalized Ratio (INR) is a therapeutic monitoring tool for patients who are stable on oral anticoagulant therapy. An INR of 2.0-3.0 is suggested for deep vein thrombosis/pulmonary embolism. Specimen Performing Laboratory Blood [facility] OF PATHOLOGY AND [facility] MEDICINE [address] [place], [place] [address] * B natriuretic peptide (12/23/2017 11:20 AM) Only the most recent of 5 results within the time period is included. Component Value Ref Range BNP 8 0 - 100 pg/mL Specimen Performing Laboratory Blood [facility] DEPARTMENT OF PATHOLOGY AND [facility] MEDICINE [address] [place], [place] [phone] Narrative GLU results called to and read back by INESSA YOUNG/AMY(name/location) at12/23/201713:13(date/time) by PR1. * Creatine kinase, total (CPK) (12/23/2017 11:20 AM) Only the most recent of 2 results within the time period is included. Component Value Ref Range Creatine kinase 185 26 - 192 U/L Specimen Performing Laboratory Plasma specimen [facility] [place] [address] * Digoxin level (12/23/2017 11:20 AM) Only the most recent of 2 results within the time period is included. Component Value Ref Range Digoxin <0.3 (L) 0.8 - 2.0 ng/mL Comment: For valid Digoxin results, at least 6 hours should elapse between time of last dose and collection of blood. Otherwise, result may be false high. Therapeutic Range: 0.8 - 2.0 ng/mL Specimen Performing Laboratory Plasma specimen [facility] OF PATHOLOG[facility] AND [facility] MEDIC[facility] [address] [place], [place] [phone] * ECG 12 lead (12/23/2017 10:38 AM) Only the most recent of 7 results within the time period is included. Component Value Ref Range Ventricular rate 96 Atrial rate 96 GA interval 168 QRSD interval 80 QT interval 366 QTC interval 462 P axis 1 64 QRS axis 1 77 T wave axis 45 EKG impression Normal sinus rhythm-Normal ECG-In automated comparison with ECG of 14-OCT-2017 13:24,-No significant change was found- Specimen Performing Laboratory [facility] MUSE [address] [place], [place] [address] * ECG ED Preliminary Interpretation - NOT AN ORDER (10/15/2017 11:45 AM) Narrative Rochelle Cadet DO 10/15/2017 11:45 AM ECG ED Preliminary Interpretation - Not an Order Performed by: ROCHELLE CADET Authorized by: ROCHELLE CADET ECG reviewed by ED Physician in the absence of a rough rib grader: yes Previous ECG: Previous ECG:Unavailable Interpretation: Interpretation: normal Rate: ECG rate:90 ECG rate assessment: normal Rhythm: Rhythm: sinus rhythm Ectopy: Ectopy: none QRS: QRS axis:Normal QRS intervals:Normal Conduction: Conduction: normal ST segments: ST segments:Normal T waves: T waves: normal * CT Abdomen Pelvis W Contrast (10/14/2017 7:05 PM) Specimen Performing Laboratory [address] [address] Narrative EXAMINATION:CT ABDOMEN PELVIS W CONTRAST CLINICAL HISTORY:lower abd pain TECHNIQUE: Multiple axial images of the abdomen and pelvis were obtained following intravenous administration of iodinated contrast. CT imaging was performed with iterative reconstruction technique and/or automated exposure control to reduce radiation dose. COMPARISON: None available FINDINGS: ABDOMEN: 1. Liver: Diffuse fatty infiltration of the liver without a focally visible liver lesion. Hepatic veins are patent. Portal vein, splenic vein, and superior mesenteric vein are widely patent. 2. Gallbladder: The gallbladder is not visualized. 3. Spleen: The spleen is not enlarged. 4. Pancreas: The pancreas is unremarkable. 5. Adrenal Glands: The adrenal glands are unremarkable. 6. Kidneys: The kidneys are unremarkable. No mass, hydronephrosis or calculi. 7. Abdominal Aorta: The abdominal aorta is nonaneurysmal with minimal atherosclerotic disease. 8. Nodes: No enlarged lymph nodes in the upper abdomen, retroperitoneum, or root of the mesentery. Few subcentimeter nonspecific right lower quadrant mesenteric lymph nodes. 9. Bowel: The appendix is normal. Scattered descending colonic diverticula a without findings to suggest acute diverticulitis. Few diverticula a of the transverse and right colon. The majority of the colon is underdistended. Few fluid-filled loops of small bowel which are not dilated. Stomach appears unremarkable. 10. Ascites: No ascites or fluid collections. IVC filter. PELVIS: 1.Pelvis: Uterus is absent. No significant free fluid in the pelvis. No suspicious inguinal or pelvic adenopathy. Multifocal small sites of stranding are noted in the ventral abdominal wall which may represent injection sites. 2. Bones: Osseous structures intact. No suspicious lesions. 3. Lung Bases: Tiny subpleural nodule in the right lower lobe which does not require a follow-up examination. Subsegmental atelectasis in the base of the right middle lobe. IMPRESSION: No acute abnormality in the abdomen or pelvis. Diffuse hepatic steatosis. Additional findings as above. [facility]-[id number] Procedure Note [facility], Radiology Results Incoming - 10/14/2017 7:17 PM ELECTRICAL SERVICE TECHNICIAN EXAMINATION: CT ABDOMEN PELVIS W CONTRAST CLINICAL HISTORY: lower abd pain TECHNIQUE: Multiple axial images of the abdomen and pelvis were obtained following intravenous administration of iodinated contrast. CT imaging was performed with iterative reconstruction technique and/or automated exposure control to reduce radiation dose. COMPARISON: None available FINDINGS: ABDOMEN: 1. Liver: Diffuse fatty infiltration of the liver without a focally visible liver lesion. Hepatic veins are patent. Portal vein, splenic vein, and superior mesenteric vein are widely patent. 2. Gallbladder: The gallbladder is not visualized. 3. Spleen: The spleen is not enlarged. 4. Pancreas: The pancreas is unremarkable. 5. Adrenal Glands: The adrenal glands are unremarkable. 6. Kidneys: The kidneys are unremarkable. No mass, hydronephrosis or calculi. 7. Abdominal Aorta: The abdominal aorta is nonaneurysmal with minimal atherosclerotic disease. 8. Nodes: No enlarged lymph nodes in the upper abdomen, retroperitoneum, or root of the mesentery. Few subcentimeter nonspecific right lower quadrant mesenteric lymph nodes. 9. Bowel: The appendix is normal. Scattered descending colonic diverticula a without findings to suggest acute diverticulitis. Few diverticula a of the transverse and right colon. The majority of the colon is underdistended. Few fluid-filled loops of small bowel which are not dilated. Stomach appears unremarkable. 10. Ascites: No ascites or fluid collections. IVC filter. PELVIS: 1. Pelvis: Uterus is absent. No significant free fluid in the pelvis. No suspicious inguinal or pelvic adenopathy. Multifocal small sites of stranding are noted in the ventral abdominal wall which may represent injection sites. 2. Bones: Osseous structures intact. No suspicious lesions. 3. Lung Bases: Tiny subpleural nodule in the right lower lobe which does not require a follow-up examination. Subsegmental atelectasis in the base of the right middle lobe. IMPRESSION: No acute abnormality in the abdomen or pelvis. Diffuse hepatic steatosis. Additional findings as above. [facility]-[id number] * hCG qualitative, urine screen (10/14/2017 6:55 PM) Component Value Ref Range hCG qualitative, urine Negative Negative Comment: The manufacturers stated sensitivity of HcG test for serum is >/=10 mIU/ml and urine is >/=20mIU/ml. Specimen Performing Laboratory Urine [facility]IC[facility] [address] [place] [address] * XR Chest 2 Vw (10/14/2017 4:05 PM) Only the most recent of 2 results within the time period is included. Specimen Performing Laboratory [facility] [address] [place] [address] Narrative EXAMINATION:XR CHEST 2 VW CLINICAL HISTORY:Chest Pain XR CHEST 2 VWimages are submitted COMPARISON:07/20/2017 FINDINGS: The cardiac silhouette is normal in size. The pulmonary vasculature is within normal limits. The lung zones are clear. There is no pleural effusion or pneumothorax. An inferior vena cava filter is present. IMPRESSION: 1. There is no acute cardiopulmonary disease. [facility]-[id number] Procedure Note Hm Interface, Radiology Results Incoming - 10/14/2017 4:11 PM ELECTRICAL SERVICE TECHNICIAN EXAMINATION: XR CHEST 2 VW CLINICAL HISTORY: Chest Pain XR CHEST 2 VW images are submitted COMPARISON: 07/20/2017 FINDINGS: The cardiac silhouette is normal in size. The pulmonary vasculature is within normal limits. The lung zones are clear. There is no pleural effusion or pneumothorax. An inferior vena cava filter is present. IMPRESSION: 1. There is no acute cardiopulmonary disease. [facility]-[id number] * hCG qualitative, serum screen (10/14/2017 1:53 PM) Only the most recent of 2 results within the time period is included. Component Value Ref Range hCG qualitative, serum Negative Comment: The manufacturers stated sensitivity of HcG test for serum is >/=10 mIU/ml and urine is >/=20mIU/ml. Specimen Performing Laboratory Blood [facility] MEDIC[facility] [address] [place] [address] * Lipase level (10/14/2017 1:53 PM) Component Value Ref Range Lipase 410 (H) 65 - 230 U/L Specimen Performing Laboratory Plasma specimen [facility]IC[facility] [address] [place] [address] * CV Cardiac event monitor (09/23/2017) * DNA Ab screen (08/19/2017 9:17 AM) Only the most recent of 2 results within the time period is included. Component Value Ref Range DNA Ab screen Not Detected Not-Detected Specimen Performing Laboratory Blood [facility] DEPARTMENT OF PATHOLOGY AND GENOMIC MEDICINE [address] [place] [address] * Cyclic citrullinated peptide antibody, IgG (08/19/2017 9:17 AM) Only the most recent of 2 results within the time period is included. Component Value Ref Range Cyclic citrullin peptide 0.5 0.0 - 2.9 U/mL Ab Comment: Anti-cyclic citrullinated peptide (Anti-CCP) IgG antibodies are present in 60-80% of patients with rhuematoid arthritis (RA) and have specificity of 95-98%. These autoantibodies may be present in the preclinical phase of thedisease, are associated with future RA development and may be useful in predicting increased severity and erosive disease course. Specimen Performing Laboratory Serum [facility] DEPARTMENT OF PATHOLOGY AND GENOMIC MEDICINE [address] [place] [address] * Aldolase, serum (08/19/2017 9:17 AM) Component Value Ref Range Aldolase 4.1 1.5 - 8.1 U/L Comment: REFERENCE INTERVAL: Aldolase Access complete set of age- and/or gender-specific reference intervals for this test in the [facility] Test Directory ([employer]). Performed by [facility], [address] [place] [id number] [email or web address] Scott MD - Lab. Director Specimen Performing Laboratory Serum [facility] [address] [place] [id number] * Hepatitis acute panel (08/19/2017 9:17 AM) Component Value Ref Range Hepatitis A IgM Non-reactive Non-reactive Hepatitis B core IgM Non-reactive Non-reactive Hepatitis B surface Ag Non-reactive Non-reactive Hepatitis C Ab Non-reactive Non-reactive Specimen Performing Laboratory Serum [facility] DEPARTMENT OF PATHOLOGY AND GENOMIC MEDICINE [address] [place] [address] * HIV 1, 2 antibody (08/19/2017 9:17 AM) Component Value Ref Range HIV 1, 2 antibody Non-reactive Non-reactive Comment: Starting from December 31 2015, 4th generation HIV screening and confirmation assays are in use at [facility], consistent with the CDC-recommended algorithm. The screening test detects antibodies to HIV-1, HIV-2 and the p24 antigen. Positive screening results will be automatically reflexed to a HIV-1/HIV-2 differentiation assay. Indeterminant HIV-1 results will be further automatically reflexed to a nucleic acid test for detection of acute infection. Western blot will no longer be performed as a confirmation test. For a quick reference guide on the testing algorithm, please refer to: http://stacks.cdc.gov/view/cdc/99164. Specimen Performing Laboratory Serum [facility] [address] [address] * Anti-neutrophilic cytoplasmic Abs panel (08/19/2017 9:17 AM) Component Value Ref Range ANCA screen Negative Negative Specimen Performing Laboratory Blood [facility] [address] [address] * Sedimentation rate (08/19/2017 9:17 AM) Component Value Ref Range Sedimentation rate 53 (H) 0 - 20 mm/hr Specimen Performing Laboratory Blood [facility] DEPARTMENT OF PATHOLOGY AND [address] [address] * Rheumatoid factor (08/19/2017 9:17 AM) Only the most recent of 2 results within the time period is included. Component Value Ref Range Rheumatoid factor <10 0 - 13 IU/mL Specimen Performing Laboratory Plasma specimen [facility] DEPARTMENT OF PATHOLOGY AND [address] [address] * C-reactive protein (08/19/2017 9:17 AM) Only the most recent of 2 results within the time period is included. Component Value Ref Range CRP 0.99 (H) 0.00 - 0.50 mg/dL Specimen Performing Laboratory Plasma specimen [facility] [address] [address] * CHANTEL (08/19/2017 9:17 AM) Only the most recent of 2 results within the time period is included. Component Value Ref Range CHANTEL screen Not Detected Not-Detected Specimen Performing Laboratory Blood [facility] DEPARTMENT PATHOLOGY [address] [address] * Anti Xa, unfractionated (07/23/2017 10:20 AM) Component Value Ref Range Anti Xa, unfractionated <0.10 (L)Comment: Therapeutic Range: 0.30 - 0.70 0.30 - 0.70 U/mL U/mL Specimen Performing Laboratory Blood [facility] DEPARTMENT OF PATHOLOGY AND [address] [address] * Thyroid stimulating hormone (07/23/2017 10:20 AM) Component Value Ref Range TSH 2.19 0.27 - 4.20 uIU/mL Specimen Performing Laboratory Plasma specimen [facility] DEPARTMENT OF PATHOLOGY AND [address] [address] * Hepatic function panel (07/23/2017 10:20 AM) Only the most recent of 2 results within the time period is included. Component Value Ref Range Albumin 2.7 (L) 3.5 - 5.0 g/dL Total bilirubin <0.2 0.0 - 1.2 mg/dL Bilirubin direct <0.2 0.0 - 0.3 mg/dL Alkaline phosphatase 88 35 - 104 U/L Protein 6.5 6.3 - 8.3 g/dL Comment: 4.6-7.0 g/dL 1 week 4.4-7.6 g/dL 7 months-1year 5.1-7.3 g/dL 1-2 years 5.6-7.5 g/dL >3 years 6.0-8.0 g/dL 18-150 6.3-8.3 g/dL ALT 30 5 - 50 U/L AST 27 10 - 35 U/L Specimen Performing Laboratory Plasma specimen [facility] DEPARTMENT OF PATHOLOGY [address] [address] * Basic metabolic panel (07/23/2017 10:20 AM) Only the most recent of 5 results within the time period is included. Component Value Ref Range Sodium 141 135 - 148 mEq/L Potassium 3.7 3.5 - 5.0 mEq/L Chloride 100 98 - 112 mEq/L CO2 27 24 - 31 mEq/L Anion gap 14 7 - 15 mEq/L Comment: Starting from January , anion gap calculation no longer incorporates potassium. Please note the change. BUN 18 6 - 20 mg/dL Creatinine 0.5 0.5 - 0.9 mg/dL Glucose 206 (H) 65 - 99 mg/dL Calcium 8.7 8.3 - 10.2 mg/dL Specimen Performing Laboratory Plasma specimen [facility] DEPARTMENT OF PATHOLOGY AND GENOMIC MEDICINE [address] [place] [address] * NM Lung Ventilation Perfusion (07/22/2017 3:30 PM) Specimen [facility] [address] [place] [address] Narrative CLINICAL HISTORY: Hypoxemiaevaluation of V Q mismatch TECHNIQUE: The patient breathed 15-20 mCi of xenon-133 gas through a closed ventilation system while dynamic imaging of the lungs was performed in the posterior and anterior projections. The patient was then injected with 5 mCi of technetium-99m -MAA intravenously, followed by imaging of the lungs in 8 projections. FINDINGS: Ventilation and perfusion are normal bilaterally. IMPRESSION: Normal VQ scan. [facility]-[id number] Procedure Note Interface, Radiology Results Incoming - 07/22/2017 4:27 PM CDT CLINICAL HISTORY: Hypoxemia evaluation of V Q mismatch TECHNIQUE: The patient breathed 15-20 mCi of xenon-133 gas through a closed ventilation system while dynamic imaging of the lungs was performed in the posterior and anterior projections. The patient was then injected with 5 mCi of technetium-99m -MAA intravenously, followed by imaging of the lungs in 8 projections. FINDINGS: Ventilation and perfusion are normal bilaterally. IMPRESSION: Normal VQ scan. [facility]-[id number] * Cv general labor forklift operator procedure (07/21/2017 1:20 PM) Specimen Performing Laboratory [facility] [address] [place] [address] Narrative Right heart filling pressure is normal. Pulmonary hypertension is absent. Wedge pressure is normal. Cardiac output is normal. Evidence of moderately elevated PCWP and secondary mild pulmonary hypertension with exercise. Initial exercise attempt under 1 minute with decreased O2 sat.Second exercise attempt performed with oxygen and noted increased duration of exercise but significantly comprised functional capacity due to increase PCWP consistent with diastolic heart failure. * XR Chest 1 Vw Portable (07/20/2017 5:32 PM) Specimen Performing Laboratory [facility] [address] [place] [address] Narrative EXAMINATION:XR CHEST 1 VW PORTABLE CLINICAL HISTORY:SHORTNESS OF BREATH COMPARISON: April 24, 2017 . IMPRESSION: 1.Heart size is at upper limits of normal. Opacity in the retrocardiac portion left lower lobes likely related to volume loss. A pleural effusion or pneumothorax is not identified. [facility]-[id number] Procedure Note Interface, Radiology Results Incoming - 07/20/2017 5:58 PM CDT EXAMINATION: XR CHEST 1 VW PORTABLE CLINICAL HISTORY: SHORTNESS OF BREATH COMPARISON: April 24, 2017 . IMPRESSION: 1. Heart size is at upper limits of normal. Opacity in the retrocardiac portion left lower lobes likely related to volume loss. A pleural effusion or pneumothorax is not identified. [facility]-[id number] * Echocardiogram complete w contrast and 3D if needed (07/20/2017 11:02 AM) Specimen Performing Laboratory [facility] [address] [place] [address] Narrative Echocardiography Report [address] [place] [address] Pat.Name:Raghu BULL.ID:[id number] .Date: 07/20/2017Refer.MD:HERON DONALD MD Exam Time: 10:05:00 AM Study Type:Routine Echo Height:64inWeight:181lb BSA: 1.88 m2 DOBAge:1979,36Y Sex: FEMALEBP: 128/72 HR:79 bpm Sonogrphr: Radah Longo RDCS; Alfreda Maciel. Stat.:Inpatient Room:[address] Study Status:Final Echo Event ID:[id number] Order ID:[id number] Reason for Study:HF - Initial eval of known or suspected HF (systeolic or diastolic) based on symptoms, signs, or abnormal test results History / Clinical:Chest Pain, Shortness of Breath, Cancer, Diabetes, Pulmonary Hypertension, DVT; Pulmonary Emboli, Lupus Procedures:2D Echo, Colorflow Doppler Race:C SUMMARY: LV systolic function is normal. Concentric left ventricular remodeling. LV relaxation is normal. LV filling pressure is normal. FINDINGS: LV: LV size is small. Concentric left ventricular remodeling. LV systolicfunction is normal. Overall wall motion is normal. EstimatedEF is 60-64%. RV: RV size is normal. RV systolic function is normal. RV wall motionis normal. LA: LA size is normal. RA: RA size is normal. AO: Aortic root diameter is normal. SANDRA: No pericardial effusion. AV: No structural AV abnormalities noted. MV: No structural MV abnormalities noted. PV: No structural PV abnormalities noted. TV: No structural TV abnormalities noted. Blanc: LV relaxation is normal. LV filling pressure is normal. Other:Insufficient TR jet to estimate PA systolic pressure. MEASUREMENTS: 2D Parasternal [place] Ao An2.1 cmLVPWd 1.2 cm LVOT 1.8 cmLA Ds 3.1 cm LVIDd3.3 cmIndex 1.8 cm/m Ao Rtd 3 cm Index1.6 cm/m LVIDs2.2 cmLV Mass 107.8 g(87-129) LV%fs 32.3 % LVM Index 57.4 g/m2 IVSd 1 cmRWT 0.7 LA Sng Plane LA Area 18.2 cm2(8.8-23.4) LA Vol41.2 ml Index21.9 ml/m LA LngAx 5.9 cm DOPPLER LVOT Stroke Vol LVOT 1.8 cmLVOT CO 3.3 l/min LVOT TVI19 cmLVOT CI 1.7 l/m/m2 LVOT Tm294 msecHR 68 bpm LVOT SV 48.3 ml Signed 07/20/2017 01:49 PM Kleley Menendez M.D. Procedure Note Interface, Radiology Results In - 07/20/2017 1:49 PM CDT Echocardiography Report [address] [address], [place] [address] Pat.Name: KELLY BULL Pat.ID: [id number] .Date: 07/20/2017 Refer.MD: HERON DONALD MD Exam Time: 10:05:00 AM Study Type:Routine Echo Height: 64in Weight: 181lb BSA: 1.88 m2 Age: 11 1980,36Y Sex: FEMALE BP: 128/72 HR: 79 bpm Sonogrphr: Radha Longo RDCS; Alfreda Obregon Stat.:Inpatient Room: [address] Study Status:Final Echo Event ID:[id number] Order ID: [id number] Reason for Study:HF - Initial eval of known or suspected HF (systeolic or diastolic) based on symptoms, signs, or abnormal test results History / Clinical:Chest Pain, Shortness of Breath, Cancer, Diabetes, Pulmonary Hypertension, DVT; Pulmonary Emboli, Lupus Procedures:2D Echo, Colorflow Doppler Race: C SUMMARY: LV systolic function is normal. Concentric left ventricular remodeling. LV relaxation is normal. LV filling pressure is normal. FINDINGS: LV: LV size is small. Concentric left ventricular remodeling. LV systolic function is normal. Overall wall motion is normal. Estimated EF is 60-64%. RV: RV size is normal. RV systolic function is normal. RV wall motion is normal. LA: LA size is normal. RA: RA size is normal. AO: Aortic root diameter is normal. SANDRA: No pericardial effusion. AV: No structural AV abnormalities noted. MV: No structural MV abnormalities noted. PV: No structural PV abnormalities noted. TV: No structural TV abnormalities noted. Blanc: LV relaxation is normal. LV filling pressure is normal. Other: Insufficient TR jet to estimate PA systolic pressure. MEASUREMENTS: 2D Parasternal [place] Ao An 2.1 cm LVPWd 1.2 cm LVOT 1.8 cm LA Ds 3.1 cm LVIDd 3.3 cm Index 1.8 cm/m Ao Rtd 3 cm Index 1.6 cm/m LVIDs 2.2 cm LV Mass 107.8 g (87-129) LV%fs 32.3 % LVM Index 57.4 g/m2 IVSd 1 cm RWT 0.7 LA Sng Plane LA Area 18.2 cm2 (8.8-23.4) LA Vol 41.2 ml Index 21.9 ml/m LA LngAx 5.9 cm DOPPLER LVOT Stroke Vol LVOT 1.8 cm LVOT CO 3.3 l/min LVOT TVI 19 cm LVOT CI 1.7 l/m/m2 LVOT Tm 294 msec HR 68 bpm LVOT SV 48.3 ml Signed 07/20/2017 01:49 PM Kelley Menendez M.D. * PV carotid duplex (07/20/2017 8:55 AM) Specimen Performing Laboratory [facility] [address] Vascular Ultrasound Laboratory Carotid Artery Duplex Report [address] [place] [address] For quality control lab tech purposes, the categorization of the degree of the stenosis of this exam is based on criteria described in the IAC carotid stenosis grading white paper( www.intersocietal.org/Vascular) and Kylah Burris., Imer Pinedo., et al. Carotid artery stenosis: marks-scale and Doppler US diagnosis--Society of Radiologists in Ultrasound Consensus Conference. Radiology. 2003 Nov; 229(2):340-6. Pat.Name:Raghu BULL.ID:[id number] .Date: 07/20/2017Refjavier.MD:ETELVINA GABRIEL MD Exam Time: 8:56:00 AMStudy Type:Carotid Height:64inWeight:181lb BSA: 1.88 m2 DOBAge:1979,36Y Sex: FEMALESonogrphr: Leon Menezes RN, RVS Pat. Stat.:OutpatientRoom:Y9589-D TapeVol: MARYURI, [facility] - 4: [address] Echo Event ID:[id number] Order ID:[id number] Reason for Study:Syncopal episode lasting several minutes on 07/19/17. Race:C SUMMARY: PHYSICAL ASSESSMENT BloodPulsesCarotid Pressure Carotid TemporalBruit Right 128/72 ++0 Left IV ++0 CAROTID ARTERY SCAN RIGHT: There is smooth intimal lining in the common carotid artery, bulb, internal and external carotid artery.Colorflow is normal. LEFT: There is smooth intimal lining in the common carotid artery, bulb, internal and external carotid artery.Colorflow is normal. PRELIMINARY FINDINGS 1. Normal carotid duplex exam. PHYSICIAN INTERPRETATION Bilateral carotid artery examination demonstrates no evidence of plaque or occlusive disease. Normal carotid duplex exam. Both vertebral arteries are antegrade. Carotid Findings:RightLeft Verteb.Flw Antegrade Antegrade Subclavian TriphasicBiphasic MEASUREMENTS: DOPPLER Right CCA Dist CCA Dist PSV96.8 cm/sCCA Dist EDV27.3 cm/s Right CCA Mid CCA Mid PSV 93.5 cm/sCCA Mid EDV 27.3 cm/s Right CCA Prox CCA Prox PSV84.5 cm/sCCA Prox EDV19.8 cm/s Right ECA ECA [id number] cm/sECA EDV 6.3 cm/s Right ICA Dist ICA Dist PSV86.4 cm/Libra Dist EDV35.2 cm/s Right ICA Mid ICA Mid PSV 90.4 cm/Libra Mid EDV 43.1 cm/s Right ICA Prox ICA Prox PSV95.6 cm/Libra Prox EDV32.3 cm/s Right Vertebral Vertebral PSV 45.2 cm/sVertebral EDV 16.7 cm/s Right Subclavian Subclavian PSV 124 cm/sSubclavian EDV8.08 cm/s Left CCA Dist CCA Dist PSV 108 cm/sCCA Dist EDV33.3 cm/s Left CCA Mid CCA Mid LRV564 cm/sCCA Mid EDV 33.3 cm/ s Left CCA Prox CCA Prox PSV 104 cm/sCCA Prox EDV27.4 cm/s Left ECA ECA [id number] cm/sECA EDV 7.68 cm/s Left ICA Dist ICA Dist PSV86.4 cm/Libra Dist EDV39.2 cm/s Left ICA Mid ICA Mid PSV 43 cm/Libra Mid EDV 20 cm/s Left ICA Prox ICA Prox PSV78 cm/Libra Prox EDV26.6 cm/ s Left Vertebral Vertebral PSV 62 cm/sVertebral EDV 25.8 cm/s Left Subclavian Subclavian PSV 108 cm/sSubclavian EDV10.1 cm/s Right ICA/CCA Ratio ICA/CCA PSV 1.02 Left ICA/CCA Ratio ICA/CCA PSV0.765 Signed 07/20/2017 05:09 PM Tylor Leonardo MD, RPVI Procedure Note Interface, Radiology Results In - 07/20/2017 5:17 PM CDT Vascular Ultrasound Laboratory Carotid Artery Duplex Report [address] [place] [address] For quality control lab tech purposes, the categorization of the degree of the stenosis of this exam is based on criteria described in the IAC carotid stenosis grading white paper( www.intersocietal.org/Vascular) and Kylah Burris., Imer Pinedo., et al. Carotid artery stenosis: marks-scale and Doppler US diagnosis--Society of Radiologists in Ultrasound Consensus Conference. Radiology. 2003 Nov; 229(2):340-6. Pat.Name: KELLY BULL Pat.ID: [id number] .Date: 07/20/2017 Refer.MD: ETELVINA GABRIEL MD Exam Time: 8:56:00 AM Study Type:Carotid Height: 64in Weight: 181lb BSA: 1.88 m2 Age: 11 1980,36Y Sex: FEMALE Sonogrphr: Leon Menezes RN, RVS Pat. Stat.:Outpatient Room: [address] Vol: PM, CPT - 4: [address] Echo Event ID:[id number] Order ID: [id number] Reason for Study:Syncopal episode lasting several minutes on 07/19/17. Race: C SUMMARY: PHYSICAL ASSESSMENT Blood Pulses Carotid Pressure Carotid Temporal Bruit Right 128/72 + + 0 Left IV + + 0 CAROTID ARTERY SCAN RIGHT: There is smooth intimal lining in the common carotid artery, bulb, internal and external carotid artery. Colorflow is normal. LEFT: There is smooth intimal lining in the common carotid artery, bulb, internal and external carotid artery. Colorflow is normal. PRELIMINARY FINDINGS 1. Normal carotid duplex exam. PHYSICIAN INTERPRETATION Bilateral carotid artery examination demonstrates no evidence of plaque or occlusive disease. Normal carotid duplex exam. Both vertebral arteries are antegrade. Carotid Findings: Right Left Verteb.Flw Antegrade Antegrade Subclavian Triphasic Biphasic MEASUREMENTS: DOPPLER Right CCA Dist CCA Dist PSV 96.8 cm/s CCA Dist EDV 27.3 cm/s Right CCA Mid CCA Mid PSV 93.5 cm/s CCA Mid EDV 27.3 cm/s Right CCA Prox CCA Prox PSV 84.5 cm/s CCA Prox EDV 19.8 cm/s Right ECA ECA PSV 102 cm/s ECA EDV 6.3 cm/s Right ICA Dist ICA Dist PSV 86.4 cm/s ICA Dist EDV 35.2 cm/s Right ICA Mid ICA Mid PSV 90.4 cm/s ICA Mid EDV 43.1 cm/s Right ICA Prox ICA Prox PSV 95.6 cm/s ICA Prox EDV 32.3 cm/s Right Vertebral Vertebral PSV 45.2 cm/s Vertebral EDV 16.7 cm/s Right Subclavian Subclavian PSV 124 cm/s Subclavian EDV 8.08 cm/s Left CCA Dist CCA Dist PSV 108 cm/s CCA Dist EDV 33.3 cm/s Left CCA Mid CCA Mid PSV 102 cm/s CCA Mid EDV 33.3 cm/s Left CCA Prox CCA Prox PSV 104 cm/s CCA Prox EDV 27.4 cm/s Left ECA ECA PSV 106 cm/s ECA EDV 7.68 cm/s Left ICA Dist ICA Dist PSV 86.4 cm/s ICA Dist EDV 39.2 cm/s Left ICA Mid ICA Mid PSV 43 cm/s ICA Mid EDV 20 cm/s Left ICA Prox ICA Prox PSV 78 cm/s ICA Prox EDV 26.6 cm/s Left Vertebral Vertebral PSV 62 cm/s Vertebral EDV 25.8 cm/s Left Subclavian Subclavian PSV 108 cm/s Subclavian EDV 10.1 cm/s Right ICA/CCA Ratio ICA/CCA PSV 1.02 Left ICA/CCA Ratio ICA/CCA PSV 0.765 Signed 07/20/2017 05:09 PM Tylor Leonardo MD, RPVI * Pv duplex venous lower extremity (07/20/2017 8:52 AM) Specimen Performing Laboratory [facility] [address] [place] [address] Narrative Vascular Ultrasound Laboratory Lower Extremity Venous Report [address] [place] [address].Name:Raghu BULL.ID:[id number] .Date: 07/20/2017Refer.MD:ETELVINA GABRIEL MD Exam Time: 8:26:00 AMStudy Type:LE Venous Height:64inWeight:181lb BSA: 1.88 m2 DOBAge:1979,36Y Sex: FEMALESonogrphr: Loen Menezes RN, ARGENISS Pat. Stat.:OutpatientRoom:S2496-K TapeVol: PM, CPT - 4: 93016 Echo Event ID:[id number] Order ID:[id number] Reason for Study:Leg pain for several weeks. States history of bilateral leg DVT and pulmonary emboli. Race:C SUMMARY: DUPLEX SCAN OBSERVATIONS Deep VeinsSuperficial Veins RightLeft RightLeft GSV (prox) NormalNormal CFV Normal Normal (above knee) Femoral Normal Normal GSV (dist) Normal Normal Profunda Normal Normal (below knee) Popliteal Normal Normal PT (prox) Normal NormalSSV Normal Normal PT (dist) Normal Normal Peroneal Normal Normal RIGHT: There is normal compressibility with no evidence of echogenic material noted within the lumen of the visualized veins. Colorflow and Doppler signals are normal. LEFT:There is normal compressibility with no evidence of echogenic material noted within the lumen of the visualized veins. Colorflow and Doppler signals are normal. PRELIMINARY FINDINGS 1. Normal venous duplex exam of the visualized veins. PHYSICIAN INTERPRETATION Venous examination of the both lower extremities demonstrated no evidence of venous thrombosis in the visualized veins. Signed 07/20/2017 01:20 PM Tylor Leonardo MD, RPVI Procedure Note Interface, Radiology Results In - 07/20/2017 1:21 PM CDT Vascular Ultrasound Laboratory Lower Extremity Venous Report [address] [place] [address] Pat.Name: KELLY BULL Pat.ID: [id number] .Date: 07/20/2017 Refer.MD: ETELVINA GABRIEL MD Exam Time: 8:26:00 AM Study Type:LE Venous Height: 64in Weight: 181lb BSA: 1.88 m2 Age: 11 1980,36Y Sex: FEMALE Sonogrphr: Leon Menezes RN, RVS Pat. Stat.:Outpatient Room: L0865-F Tape Vol: PM, CPT - 4: 08416 Echo Event ID:[id number] Order ID: [id number] Reason for Study:Leg pain for several weeks. States history of bilateral leg DVT and pulmonary emboli. Race: C SUMMARY: DUPLEX SCAN OBSERVATIONS Deep Veins Superficial Veins Right Left Right Left GSV (prox) Normal Normal CFV Normal Normal (above knee) Femoral Normal Normal GSV (dist) Normal Normal Profunda Normal Normal (below knee) Popliteal Normal Normal PT (prox) Normal Normal SSV Normal Normal PT (dist) Normal Normal Peroneal Normal Normal RIGHT: There is normal compressibility with no evidence of echogenic material noted within the lumen of the visualized veins. Colorflow and Doppler signals are normal. LEFT: There is normal compressibility with no evidence of echogenic material noted within the lumen of the visualized veins. Colorflow and Doppler signals are normal. PRELIMINARY FINDINGS 1. Normal venous duplex exam of the visualized veins. PHYSICIAN INTERPRETATION Venous examination of the both lower extremities demonstrated no evidence of venous thrombosis in the visualized veins. Signed 07/20/2017 01:20 PM Tylor Leonardo MD, RPVI * SS-B antibody (04/27/2017 6:20 AM) Component Value Ref Range Sjogren's SS-B antibody <0.2 0.0 - 0.9 AI Comment: SS-B is less sensitive than SS-A for Sjogren's syndrome, but is more specific and is useful in distinguishing SLE from Sjogren's. SS-A should beordered separately if clinically warranted. Specimen Performing Laboratory Serum [facility] DEPARTMENT OF PATHOLOGY AND GENOMIC MEDICINE [address] [place] [address] * SS-A antibody (04/27/2017 6:20 AM) Component Value Ref Range Sjogren's SS-A antibody <0.2 0.0 - 0.9 AI Comment: SS-A is sensitive for Sjogren's syndrome, but may also be positive with SLE(up to 30% of SLE patients are positive for SS-A). SS-B is less sensitive, but is useful in distinguishing SLE from Sjogren's, and should be ordered if clinically warranted Specimen Performing Laboratory Serum [facility] PATHOLOGY [address] [address] * Castaneda antibody (04/27/2017 6:20 AM) Component Value Ref Range Castaneda antibody <0.2 0.0 - 0.9 AI Comment: Anti-Sm antibodies have high specificity for SLE. dsDNA is the main marker for serological evidence of SLE and should be ordered separately. Specimen Performing Laboratory Serum [facility] PATHOLOGY [address] [address] * Scl-70 antibody (04/27/2017 6:20 AM) Component Value Ref Range Scleroderma SCL-70 Ab <0.2 0.0 - 0.9 AI Comment: Scl-70 is associated with SSc scleroderma. For CREST scleroderma, anti-centromere antibody should be ordered separately. Specimen Performing Laboratory Serum [address] [address] * Ribonucleic antibody (TOUCH UP PAINTER HAND) (04/27/2017 6:20 AM) Component Value Ref Range Ribonucleic antibody 0.3 0.0 - 0.9 AI (TOUCH UP PAINTER HAND) Comment: TOUCH UP PAINTER HAND is typically positive with MCTD, but is also associated with SLE. To distinguish SLE from MCTD, Sm is positive with SLE and typically negative with MCTD. Sm antibody should be ordered separately if clinically warranted. Specimen Performing Laboratory Serum [address] [address] * Hepatitis C antibody (04/27/2017 4:00 AM) Component Value Ref Range Hepatitis C Ab Non-reactive Non-reactive Specimen Performing Laboratory Blood [facility] PATHOLOGY [address] [address] * Hepatitis B surface antigen (04/27/2017 4:00 AM) Component Value Ref Range Hepatitis B surface Ag Non-reactive Non-reactive Specimen Performing Laboratory Blood [facility] PATHOLOGY [address] [address] * C3 complement component (04/27/2017 4:00 AM) Component Value Ref Range C3 complement 171 90 - 180 mg/dL Specimen Performing Laboratory Plasma specimen [facility] PATHOLOGY [address] [address] * C4 complement component (04/27/2017 4:00 AM) Component Value Ref Range C4 complement 38 10 - 40 mg/dL Specimen Performing Laboratory Plasma specimen [facility] DEPARTMENT OF PATHOLOGY AND GENOMIC MEDICINE [address] [place] [address] * Echocardiogram complete w contrast and 3D if needed (04/26/2017 10:42 AM) Specimen Performing Laboratory [facility] [address] [place] [address] Narrative Echocardiography Report [address] [place] [address] Wall motion diagram can be located in the PACS image link Pat.Name:Raghu BULL.ID:[id number] .Date: 04/26/2017 Refer.MD:MERLY WIGGINS MD Exam Time: 10:04:00 AM Study Type:Routine Echo Height:63.78in Weight:178.2lb BSA: 1.86 m2 DOBAge:1979,36Y Sex: FEMALEBP: 140/88 Sonogrphr: Alysia Patton RDCS, RVSPat. Stat.:Inpatient Room:[id number] Status:Final Echo Event ID:[id number] Order ID:[id number] Reason for Study:Chest pain, suspected cardiac etiology, SOB, suspected cardiac etiology History / Clinical:Chest Pain, Shortness of Breath Procedures:2D Echo, Colorflow Doppler Race:C SUMMARY: Normal 2D and Doppler examination. FINDINGS: LV: LV size is normal. LV function is normal. Overall wall motionis normal. Estimated EF is 60-64%. RV: RV size is normal. RV function is normal. RV wall motion is normal. LA: LA size is normal. RA: RA size is normal. AO: Aortic root diameter is normal. SANDRA: No pericardial effusion. AV: No structural AV abnormalities noted. MV: No structural MV abnormalities noted. A trace of mitral regurgitation. PV: No structural PV abnormalities noted. TV: No structural TV abnormalities noted. Blanc: LV relaxation is normal. LV filling pressure is normal. Other:Insufficient TR jet to estimate PA systolic pressure. MEASUREMENTS: 2D Parasternal [place] LVOT 2.2 cmAo Rtd 3 cm Index1.6 cm/m LVIDd4.3 cmIndex 2.3 cm/m LV Putx681.5 g(87-129) IVSd 1.1 cmLVM Index 76.6 g/m2 LVPWd0.9 cmRWT 0.4 LA Ds3.6 cm LA Sng Plane LA Area 18.7 cm2(8.8-23.4) LA Vol53.3 ml Index28.6 ml/m LA LngAx 5 cm RA Sng Plane RA Area 13.6 cm2(8.3-19.5) RA Vol32.6 ml Index17.5 ml/m RA LngAx 4.8 cm Signed 04/26/2017 04:33 PM Kelley Menendez M.D. Procedure Note Interface, Radiology Results In - 04/26/2017 4:33 PM CDT Echocardiography Report [address] [place] [address] Wall motion diagram can be located in the PACS image link Pat.Name: KELLY BULL [facility].ID: [id number] .Date: 04/26/2017 Refer.MD: MERLY WIGGINS MD Exam Time: 10:04:00 AM Study Type:Routine Echo Height: 63.78in Weight: 178.2lb BSA: 1.86 m2 Age: 11 1980,36Y Sex: FEMALE BP: 140/88 Sonogrphr: Alysia Patton RDCS, RVSPat. Stat.:Inpatient Room: [id number] Study Status:Final Echo Event ID:[id number] Order ID: [id number] Reason for Study:Chest pain, suspected cardiac etiology, SOB, suspected cardiac etiology History / Clinical:Chest Pain, Shortness of Breath Procedures:2D Echo, Colorflow Doppler Race: C SUMMARY: Normal 2D and Doppler examination. FINDINGS: LV: LV size is normal. LV function is normal. Overall wall motion is normal. Estimated EF is 60-64%. RV: RV size is normal. RV function is normal. RV wall motion is normal. LA: LA size is normal. RA: RA size is normal. AO: Aortic root diameter is normal. SANDRA: No pericardial effusion. AV: No structural AV abnormalities noted. MV: No structural MV abnormalities noted. A trace of mitral regurgitation. PV: No structural PV abnormalities noted. TV: No structural TV abnormalities noted. Blanc: LV relaxation is normal. LV filling pressure is normal. Other: Insufficient TR jet to estimate PA systolic pressure. MEASUREMENTS: 2D Parasternal [place] LVOT 2.2 cm Ao Rtd 3 cm Index 1.6 cm/m LVIDd 4.3 cm Index 2.3 cm/m LV Mass 142.5 g (87-129) IVSd 1.1 cm LVM Index 76.6 g/m2 LVPWd 0.9 cm RWT 0.4 LA Ds 3.6 cm LA Sng Plane LA Area 18.7 cm2 (8.8-23.4) LA Vol 53.3 ml Index 28.6 ml/m LA LngAx 5 cm RA Sng Plane RA Area 13.6 cm2 (8.3-19.5) RA Vol 32.6 ml Index 17.5 ml/m RA LngAx 4.8 cm Signed 04/26/2017 04:33 PM Kelley Menendez M.D. * CT Head Wo Contrast (04/26/2017 9:38 AM) Specimen Performing Laboratory [facility] [address] [place] [id number] Narrative EXAMINATION: CT HEAD WO CONTRAST CLINICAL HISTORY: [id number] TRAUMA, possible seizure activity with hx of lupus COMPARISON:None TECHNIQUE: Noncontrast enhanced images of the brain were obtained from the skull base to the vertex. Both soft tissue and bone reconstruction algorithms were performed.CT imaging was performed with iterative reconstruction technique and/or automated exposure control to reduce radiation dose. FINDINGS: The brain parenchyma has no acute lesion. The marks-white matter differentiation is preserved. No evidence of acute intra or extra-axial hemorrhage, mass, mass effect or acute territorial infarction. There is no acute hydrocephalus. Basal cisterns are patent. No history of intracranial trauma or etiology for patient's seizures. No acute soft tissue hematoma or laceration. Paranasal sinuses shows no acute air-fluid levels. Mastoid air cells are clear.No skull fractures or aggressive bony lesions. IMPRESSION: No acute intracranial abnormality identified. [id number] Procedure Note Interface, Radiology Results [facility] - 04/26/2017 9:56 AM CDT EXAMINATION: CT HEAD WO CONTRAST CLINICAL HISTORY: SEIZURE NEW 18-40 NO TRAUMA, possible seizure activity with hx of lupus COMPARISON: None TECHNIQUE: Noncontrast enhanced images of the brain were obtained from the skull base to the vertex. Both soft tissue and bone reconstruction algorithms were performed. CT imaging was performed with iterative reconstruction technique and/or automated exposure control to reduce radiation dose. FINDINGS: The brain parenchyma has no acute lesion. The marks-white matter differentiation is preserved. No evidence of acute intra or extra-axial hemorrhage, mass, mass effect or acute territorial infarction. There is no acute hydrocephalus. Basal cisterns are patent. No history of intracranial trauma or etiology for patient's seizures. No acute soft tissue hematoma or laceration. Paranasal sinuses shows no acute air-fluid levels. Mastoid air cells are clear. No skull fractures or aggressive bony lesions. IMPRESSION: No acute intracranial abnormality identified. [id number] * Venous blood gas (04/24/2017 11:35 PM) Component Value Ref Range pH, venous 7.36 7.32 - 7.42 pCO2, venous 41 (L) 45 - 51 mmHg pO2, venous 53 (H) 25 - 40 mmHg Base excess, venous -2 -2 - 2 meq/L O2 saturation, venous 87 (H) 40 - 70 % Bicarbonate, venous 22.5 21.0 - 28.0 mmol/L Specimen Performing Laboratory Blood [facility] DEPARTMENT OF PATHOLOGY AND GENOMIC MEDICINE [address] [place] [id number] after 01/15/2017 Insurance Payer Benefit Subscriber ID Type Phone Address Plan / Group BCBS EXCHANGE BLUE xxxxxxxxxxxx Exchange ADVANTAGE HMO EXCH [facility] xxxxxxxxx HMO PLAN [facility] MEDICAID MEDICAID xxxxxxxxx Medicaid
[2018-01-16 07:30] VITALS: BP 127/69
[2018-01-16] MEDS ORDERED: PREDNISONE 5 MG TAB PO SCH (09:00)
[2018-01-16] MEDS ORDERED: FUROSEMIDE 20 MG TAB PO SCH (09:00)
[2018-01-16] MEDS ORDERED: METOPROLOL SUCCINATE 50 MG TAB XL PO SCH ×2 (09:00)
[2018-01-16] MEDS ORDERED: HYDROXYCHLOROQUINE SULFATE 200 MG TAB PO SCH ×2 (09:00)
[2018-01-16] MEDS ORDERED: INSULIN DETEMIR 100 UNIT/ML PEN SQ SCH (09:00)
[2018-01-16] MEDS ORDERED: DIGOXIN 0.25 MG TAB PO SCH (09:00)
[2018-01-16] MEDS ORDERED: PANTOPRAZOLE SOD 40 MG TABEC PO SCH (09:00)
[2018-01-16] MEDS: METOCLOPRAMIDE HCL 10 MG TAB PO SCH ×2 (09:00→12:25)
[2018-01-16] MEDS: INSULIN REGULAR, HUMAN 100 UNIT/1 ML 3ML VIAL SQ SCH ×2 (09:02→12:25)
[2018-01-16 11:16] LABS: CREATINE KINASE 120 IU/L (29-168)
[2018-01-16 12:57] VITALS: BP 119/64
[2018-01-16] MEDS ORDERED: PANTOPRAZOLE SO40 MG PO (15:41)
[2018-01-16] MEDS ORDERED: REGLAN10 MG PO (15:41)
--- NOTE | 2018-01-16 16:31 | History and Physical ---
[facility] PRIMARY CARE PROVIDER: Dr. El Regan ADMITTING DIAGNOSES 1. Chest pain, rule out acute coronary syndrome. 2. Gastroesophageal reflux. 3. Lupus. 4. Type 2 diabetes. 5. Hypertension. DISCHARGE DIAGNOSES 1. Chest pain, rule out acute coronary syndrome. 2. Gastroesophageal reflux. 3. Lupus. 4. Type 2 diabetes. 5. Hypertension. BRIEF HISTORY: Ms. Manzo is a 37-year-old lady presenting with 1 day of chest pressure and pain sensation, retrosternal and on the left chest with no diaphoresis, shortness of breath, nausea, and vomiting. REVIEW OF SYSTEMS: She denies fever, chills or weight loss. She denies sinus congestion or sore throat. She has chest pain as described. She denies shortness of breath, wheezing or cough. She denies abdominal pain, nausea, vomiting, or melena. She denies dysuria or flank pain. She denies rash or pruritus. She denies joint pain or swelling. She denies headache, vertigo or loss of consciousness. She denies depression, agitation, homicide, or suicidal ideation. PAST MEDICAL HISTORY: Significant for lupus and pulmonary hypertension. She has had previous thromboembolic event. She has long-standing type 2 diabetes and hypertension. She also has a history of , hysterectomy and cholecystectomy several years ago. CURRENT MEDICATIONS 1. Digoxin 250 mcg daily. 2. Lasix 20 mg daily. 3. Plaquenil 200 mg twice daily. 4. Metoprolol 50 mg twice daily. 5. Prednisone 5 mg daily. 6. Levemir 30 units at bedtime. 7. Insulin 15 units with each meal, regular Humalog. 8. Lovenox 80 mg subcutaneous b.i.d. ALLERGIES: SHE HAS A STATED ALLERGY TO BACTRIM, IBUPROFEN, XANAX, AND PLASTIC TAPE. FAMILY HISTORY: Remarkable for hypertension and diabetes. SOCIAL HISTORY: The patient is . Turkish is her primary language. She does not smoke, drink or use illegal drugs. She is generally independently functioning. PHYSICAL EXAMINATION PSYCHIATRIC: She is alert and oriented times 3 with normal mood and affect. CONSTITUTIONAL: She has a normal body habitus. Is in no acute distress. VITAL SIGNS: Blood pressure 119/64, pulse 86 and regular, respiratory rate 20, O2 sat 98%, temperature 98.3. HEENT: Her head is atraumatic. Eyes are anicteric with clear conjunctivae. Ears and nares are without erythema or discharge. Oropharynx is clear. NECK: Supple with no mass or thyromegaly. LYMPHATIC SYSTEM: She has no palpable cervical, axillary or inguinal adenopathy. CARDIOVASCULAR: Her heart has a regular rate and rhythm without murmur or extra heart sound. She has no carotid bruit. She has no peripheral edema. She has palpable dorsal pedal pulses. RESPIRATORY: Lungs are clear to auscultation and percussion with normal respiratory effort. GASTROINTESTINAL: Abdomen is soft without organomegaly, masses or tenderness. She has normal bowel sounds present. CUTANEOUS: Her skin is warm and dry to touch with no rash or skin breakdown. MUSCULOSKELETAL: Her joints are in normal alignment without erythema or swelling. She has no calf tenderness. NEUROLOGIC: Nonfocal with intact cranial nerves and no motor or sensory deficits. DIAGNOSTIC STUDIES: Chest x-ray shows no acute disease. Her EKG is completely normal. V/Q scan shows very low probability. Her troponin is less than 0.001 and less than 0.001. BNP less than 10. Chemistry profile shows normal electrolytes. CO2 22, creatinine 0.77, BUN 11 for a normal GFR. Glucose 475. Calcium 9.9. Subsequent sugars were 275 and 275 after receiving Levemir. Her transaminases, bilirubin and alk phos were all normal. CBC shows a white count of 6.89 with a normal differential. Hemoglobin 13.7, hematocrit 39, and platelet count 308,000. Coags are normal. IMPRESSION AND PLAN 1. Chest pain: Rule out acute coronary syndrome. The patient is currently pain free. Cardiac enzymes are negative times 2. She does feel better today after having reflux meds overnight. 2. Gastroesophageal reflux: The patient denies any history. However, she was started on Protonix and Reglan yesterday and feels better today. She was educated on diabetic gastroparesis and autonomic neuropathy, and how gastric reflux can be silent and cause noncardiac chest pain. 3. Type 2 diabetes: Was uncontrolled initially. Got Levemir. Is on sliding scale insulin and coming under fair control now. 4. Lupus: Seems stable. Will continue her Plaquenil. 5. Hypertension: Well controlled. Will continue her metoprolol. 6. For prophylaxis, the patient is on Protonix. HOSPITAL COURSE: The patient was admitted to the floor overnight. Serial cardiac enzymes were negative. Her EKG was completely normal. Her symptoms resolved with reflux medication of Protonix and Reglan. She was discharged home to continue with diabetic and cardiac diet. Continue activity as tolerated. She will resume all of her home meds with the addition of Protonix and Reglan for acid reflux. Will follow up with her PCP within 2 weeks. Job#: [id number] [place]
== END 2018-01-16 16:02 | disposition home or self-care (01) ==
LOC: ER 02:17 → ERHOLD 06:28 → MED/SURG 07:02
PROVIDERS: ADMIT Internal Medicine; ATTEND Internal Medicine
DX: R07.89 Other chest pain (principal); M32.9 Systemic lupus erythematosus, unspecified; M06.9 Rheumatoid arthritis, unspecified; M79.7 Fibromyalgia; Z86.718 Personal history of other venous thrombosis and embolism; Z86.711 Personal history of pulmonary embolism; E87.1 Hypo-osmolality and hyponatremia; K21.9 Gastro-esophageal reflux disease without esophagitis; I10 Essential (primary) hypertension; Z88.6 Allergy status to analgesic agent; Z88.8 Allergy status to other drugs, medicaments and biological substances; Z91.048 Other nonmedicinal substance allergy status; E11.65 Type 2 diabetes mellitus with hyperglycemia
CPT/HCPCS: 36415; 71045; 78582; 80053; 81001; 82550; 82553; 82948; 83880; 84484; 85025; 85610; 85730; 93005; 96372; 96374; 99284; A9540; A9558; G0378; J2405; J7512

== ENCOUNTER 2022-03-12 11:31 | Emergency (ER) | payer BC, OTHER ==
[~2022-03-12] VITALS: Ht 162.6 cm; Wt 77.6 kg
[~2022-03-12 11:31] MED LIST changes: +PANTOPRAZOLE SO40 MG PO; +REGLAN10 MG PO
[2022-03-12] MEDS ORDERED: ONDANSETRON HCL INJ 2MG/ML 2ML 2 MG/ML VIAL IV STA (11:55)
[2022-03-12] MEDS ORDERED: SODIUM CHLORIDE 0.9% 1000ML 1,000 ML IV STA (11:55)
[2022-03-12] MEDS ORDERED: Morphine 4mg Syringe 4 MG/ML INJ IV ONE (12:00)
[2022-03-12 12:20] LABS: BASOPHILS % 0.3 % (0.0-1.0); EOSINOPHILS # (AUTO) 0.1 (0.0-0.4); EOSINOPHILS % 0.8 % (0.0-6.0); HEMATOCRIT 39.8 % (34.2-44.1); HEMOGLOBIN 13.3 g/dL (12.0-16.0); LYMPHOCYTES % 30.1 % (18.0-39.1); MEAN CORPUSCULAR HEMOGLOBIN 29.5 pg (28-32); MEAN CORPUSCULAR HGB CONC 33.4 g/dL (31-35); MEAN CORPUSCULAR VOLUME 88.2 fL (81-99); MONOCYTES # (AUTO) 0.4 (0.2-0.8); MONOCYTES % 5.3 % (4.4-11.3); NEUTROPHILS # (AUTO) 4.2 (2.1-6.9); NEUTROPHILS % 63.2 % (38.7-80.0); PLATELET COUNT 336 x10e3/uL (140-360); RED BLOOD COUNT 4.51 x10e6/uL (3.6-5.1); RED CELL DISTRIBUTION WIDTH 11.9 % (11.7-14.4)
[2022-03-12 12:40] LABS: INR 0.94; PROTHROMBIN TIME 13.4 seconds (11.9-14.5)
[2022-03-12 12:41] LABS: PARTIAL THROMBOPLASTIN TIME 24.6 seconds (23.8-35.5)
[2022-03-12 12:50] LABS: ALANINE AMINOTRANSFERASE 19 IU/L (0-55); ALBUMIN 3.3 g/dL (3.5-5.0); ALBUMIN/GLOBULIN RATIO 0.8 (0.8-2.0); ALKALINE PHOSPHATASE 94 IU/L (40-150); ANION GAP 19.4 mmol/L (8-16); BLOOD UREA NITROGEN 15 mg/dL (7-26); BUN/CREATININE RATIO 17 (6-25); CALCIUM 9.1 mg/dL (8.4-10.2); CARBON DIOXIDE 24 mmol/L (22-29); CHLORIDE 94 mmol/L (98-107); CREATINE KINASE 138 IU/L (29-168); CREATININE, SERUM 0.89 mg/dL (0.57-1.11); POTASSIUM 3.4 mmol/L (3.5-5.1); SODIUM 134 mmol/L (136-145)
[2022-03-12 12:54] LABS: GLUCOSE 435 mg/dL (74-118)
[2022-03-12] MEDS ORDERED: INSULIN REGULAR, HUMAN 100 UNIT/1 ML IV ONE ×3 (13:00→14:45)
[2022-03-12] MEDS ORDERED: FENTANYL CITRATE/PF 100MCG/2 ML INJ IV ONE (15:00)
[2022-03-12] MEDS ORDERED: METOCLOPRAMIDE HCL 10 MG/2ML VIAL IV ONE (15:00)
[2022-03-12] MEDS ORDERED: DICYCLOMINE HCL10 MG PO (16:11)
[2022-03-12] MEDS ORDERED: ONDANSETRON ODT4 MG PO (16:11)
[2022-03-12] MEDS ORDERED: PROMETHAZINE HC25 M1 PO (16:13)
[2022-03-12 16:30] VITALS: BP 123/70
[2022-03-12] MEDS ORDERED: HEPARIN 500 UNITS/5ML MDV INJ ONE (16:45)
== END 2022-03-12 16:42 | disposition home or self-care (01) ==
LOC: ER 11:45
DX: R11.2 Nausea with vomiting, unspecified (principal); K52.9 Noninfective gastroenteritis and colitis, unspecified; R06.02 Shortness of breath; E11.65 Type 2 diabetes mellitus with hyperglycemia; M32.9 Systemic lupus erythematosus, unspecified; D64.9 Anemia, unspecified; Z20.822 Contact with and (suspected) exposure to COVID-19; R94.31 Abnormal electrocardiogram [ECG] [EKG]
CPT/HCPCS: 36415; 70450; 71045; 74177; 80053; 82550; 82553; 82948; 83690; 83880; 84484; 85025; 85610; 85730; 93005; 99283; J2270; J2405; J2765; J3010; J7030; U0002

== ENCOUNTER 2024-04-14 11:16 | Inpatient (IN) | payer OTHER ==
[~2024-04-14] VITALS: Ht 162.6 cm; Wt 77.6 kg
[~2024-04-14 11:16] MED LIST changes: +DICYCLOMINE HCL10 MG PO; +ONDANSETRON ODT4 MG PO; +PROMETHAZINE HC25 M1 PO
[2024-04-14 11:50] VITALS: TEMP 97.9
[2024-04-14] MEDS ORDERED: HYDRALAZINE HC100 MG PO (14:33)
[2024-04-14] MEDS ORDERED: AMLODIPINE BESY10 MG PO (14:33)
[2024-04-14] MEDS ORDERED: ENTRESTO 49 MG1 EACH PO (14:33)
[2024-04-14] MEDS: Morphine 4mg INJECTION 4 MG/ML INJ IV ONE (14:37)
[2024-04-14] MEDS: ONDANSETRON HCL INJ 2MG/ML 2ML 2 MG/ML VIAL IV STA (14:37)
[2024-04-14 14:51] VITALS: PULSE 78; RESP 16
[2024-04-14 14:57] LABS: BILIRUBIN,URINE NEGATIVE (NEGATIVE); CLARITY,URINE SL CLOUDY (CLEAR); COLOR,URINE YELLOW (YELLOW); GLUCOSE, URINE 2+ (NEGATIVE); KETONES,URINE TRACE (NEGATIVE); LEUKOCYTE ESTERASE ,URINE NEGATIVE (NEGATIVE); NITRITE,URINE NEGATIVE (NEGATIVE); PH,URINE 5.5 (5 - 7); PROTEIN,URINE DIPSTICK >=300 (NEGATIVE); URINE UROBILINOGEN 0.2 mg/dL (0.2 - 1)
[2024-04-14 15:00] LABS: BASOPHILS % 0.4 % (0.0-1.0); EOSINOPHILS # (AUTO) 0.3 (0.0-0.4); EOSINOPHILS % 2.9 % (0.0-6.0); HEMATOCRIT 31.4 % (34.2-44.1); HEMOGLOBIN 10.1 g/dL (12.0-16.0); LYMPHOCYTES # (AUTO) 2.7 (1.0-3.2); LYMPHOCYTES % 28.7 % (18.0-39.1); MEAN CORPUSCULAR HEMOGLOBIN 30.2 pg (28-32); MEAN CORPUSCULAR HGB CONC 32.2 g/dL (31-35); MONOCYTES # (AUTO) 0.7 (0.2-0.8); MONOCYTES % 6.9 % (4.4-11.3); NEUTROPHILS # (AUTO) 5.7 (2.1-6.9); NEUTROPHILS % 60.7 % (38.7-80.0); PLATELET COUNT 662 x10e3/uL (140-360); RED BLOOD COUNT 3.34 x10e6/uL (3.6-5.1); RED CELL DISTRIBUTION WIDTH 13.2 % (11.7-14.4); WHITE BLOOD COUNT 9.45 x10e3/uL (4.8-10.8)
[2024-04-14 15:10] LABS: AMORPHOUS SEDIMENT,URINE MODERATE (FEW); BACTERIA,URINE MODERATE /HPF; WBC,URINE (MAN) 0-5 /HPF (0-5)
[2024-04-14 15:16] LABS: ALBUMIN 2.7 g/dL (3.5-5.0); ALBUMIN/GLOBULIN RATIO 0.6 (0.8-2.0); ANION GAP 15.4 mmol/L (8-16); BILIRUBIN,TOTAL 0.1 mg/dL (0.2-1.2); CALCIUM 8.9 mg/dL (8.4-10.2); CREATININE, SERUM 0.86 mg/dL (0.57-1.11); TOTAL PROTEIN 7.1 g/dL (6.5-8.1)
[2024-04-14 15:18] LABS: POTASSIUM 5.4 mmol/L (3.5-5.1)
[2024-04-14] MEDS: ONDANSETRON HCL INJ 2MG/ML 2ML 2 MG/ML VIAL IV PRN (15:48)
[2024-04-14] MEDS: Morphine 4mg INJECTION 4 MG/ML INJ IV PRN (15:50)
[2024-04-14 16:11] VITALS: BP 174/86; PULSE 83; RESP 18; TEMP 97.8; O2SAT 100
[2024-04-14 16:12] VITALS: BP 174/86; PULSE 83; RESP 18; TEMP 97.8; O2SAT 100
[2024-04-14] MEDS ORDERED: TIZANIDINE HCL4 MG PO (16:20)
[2024-04-14] MEDS ORDERED: SCOPOLAMINE1 EACH (16:20)
[2024-04-14] MEDS ORDERED: CYCLOBENZAPRINE10 MG PO (16:20)
[2024-04-14] MEDS ORDERED: DEXTROSE 50% SYRINGE 50 ML IV PRN (18:00)
[2024-04-14] MEDS: SACUBITRIL49MG/VALSARTAN51MG 1 EACH TABLET PO SCH (18:32)
[2024-04-14] MEDS: AMLODIPINE BESYLATE 10 MG TAB PO SCH (18:32)
[2024-04-14 20:00] VITALS: BP 135/70; PULSE 75; RESP 17; TEMP 98.7; O2SAT 100
[2024-04-14] MEDS: INSULIN LISPRO 100 UNIT/1 ML 3ML VIAL SQ SCH (20:26)
[2024-04-15] VITALS (7 sets, daily range): BP systolic 114–145; BP diastolic 67–75; PULSE 74–86; RESP 12–20; TEMP 98.1–98.6; O2SAT 99–100
[2024-04-15 06:11] LABS: BASOPHILS % 0.3 % (0.0-1.0); EOSINOPHILS # (AUTO) 0.4 (0.0-0.4); EOSINOPHILS % 3.9 % (0.0-6.0); HEMATOCRIT 28.3 % (34.2-44.1); HEMOGLOBIN 8.9 g/dL (12.0-16.0); LYMPHOCYTES # (AUTO) 3.6 (1.0-3.2); LYMPHOCYTES % 38.4 % (18.0-39.1); MEAN CORPUSCULAR HEMOGLOBIN 30.4 pg (28-32); MEAN CORPUSCULAR HGB CONC 31.4 g/dL (31-35); MEAN CORPUSCULAR VOLUME 96.6 fL (81-99); MONOCYTES # (AUTO) 0.6 (0.2-0.8); MONOCYTES % 6.6 % (4.4-11.3); NEUTROPHILS # (AUTO) 4.7 (2.1-6.9); NEUTROPHILS % 50.5 % (38.7-80.0); PLATELET COUNT 569 x10e3/uL (140-360); RED BLOOD COUNT 2.93 x10e6/uL (3.6-5.1); RED CELL DISTRIBUTION WIDTH 13.4 % (11.7-14.4); WHITE BLOOD COUNT 9.34 x10e3/uL (4.8-10.8)
[2024-04-15 06:42] LABS: ALBUMIN 2.4 g/dL (3.5-5.0); ALBUMIN/GLOBULIN RATIO 0.6 (0.8-2.0); ANION GAP 16.6 mmol/L (8-16); BILIRUBIN,TOTAL 0.2 mg/dL (0.2-1.2); CALCIUM 9.9 mg/dL (8.4-10.2); CREATININE, SERUM 1.63 mg/dL (0.57-1.11); TOTAL PROTEIN 6.1 g/dL (6.5-8.1)
[2024-04-15 06:46] LABS: POTASSIUM 5.6 mmol/L (3.5-5.1)
[2024-04-15 13:09] LABS: BASOPHILS % (MANUAL) 1 % (0-1.5); EOSINOPHILS % (MANUAL) 6 % (0-7); LYMPHOCYTES % (MANUAL) 39 % (19-48); MONOCYTES % (MANUAL) 2 % (3.4-9.0); NEUTROPHILS % (MANUAL) 39 % (40-74); REACTIVE LYMPHOCYTES 13
[2024-04-15 13:10] LABS: PLATELET ESTIMATE SLIGHTLY INCREASED; PLATELET MORPHOLOGY COMMENT NORMAL; RBC MORPHOLOGY COMMENT NORMAL
[2024-04-15 17:00] LABS: BASOPHILS % 0.3 % (0.0-1.0); EOSINOPHILS # (AUTO) 0.4 (0.0-0.4); EOSINOPHILS % 3.8 % (0.0-6.0); HEMATOCRIT 25.3 % (34.2-44.1); HEMOGLOBIN 8.3 g/dL (12.0-16.0); LYMPHOCYTES # (AUTO) 3.9 (1.0-3.2); LYMPHOCYTES % 38.8 % (18.0-39.1); MEAN CORPUSCULAR HEMOGLOBIN 31.2 pg (28-32); MEAN CORPUSCULAR HGB CONC 32.8 g/dL (31-35); MEAN CORPUSCULAR VOLUME 95.1 fL (81-99); MONOCYTES # (AUTO) 0.7 (0.2-0.8); MONOCYTES % 6.5 % (4.4-11.3); NEUTROPHILS # (AUTO) 5.1 (2.1-6.9); NEUTROPHILS % 50.2 % (38.7-80.0); PLATELET COUNT 538 x10e3/uL (140-360); RED BLOOD COUNT 2.66 x10e6/uL (3.6-5.1); RED CELL DISTRIBUTION WIDTH 13.2 % (11.7-14.4); WHITE BLOOD COUNT 10.16 x10e3/uL (4.8-10.8)
[2024-04-15] MEDS: CEFTRIAXONE 2 GM in SODIUM CHLORIDE 0.9% 100 ML IV SCH (17:04)
[2024-04-15 17:23] LABS: ANION GAP 16.5 mmol/L (8-16); CALCIUM 8.6 mg/dL (8.4-10.2); CREATININE, SERUM 1.59 mg/dL (0.57-1.11)
[2024-04-15 17:28] LABS: POTASSIUM 5.5 mmol/L (3.5-5.1)
[2024-04-15] MEDS ORDERED: AMLODIPINE BESYLATE 10 MG TAB PO SCH (18:00)
[2024-04-15] MEDS: SOD POLYSTYRENE SULFONATE SUSP 15 GM/60 ML BTL PO ONE (20:44)
[2024-04-16] VITALS (7 sets, daily range): BP systolic 148–165; BP diastolic 65–80; PULSE 79–81; RESP 18–20; TEMP 97.9–98.7; O2SAT 96–100
[2024-04-16] MEDS: HYDROXYCHLOROQUINE SULFATE 200 MG TAB PO SCH (08:55)
[2024-04-16] MEDS: SODIUM CHLORIDE FLUSH 10 ML SYR INJ PRN (09:03)
[2024-04-16] MEDS: SODIUM CHLORIDE 0.9% 1000ML 1,000 ML IV SCH (13:54)
[2024-04-17] VITALS (9 sets, daily range): BP systolic 120–183; BP diastolic 65–79; PULSE 74–96; RESP 17–19; TEMP 97.6–98.7; O2SAT 96–100
[2024-04-17 04:19] LABS: BASOPHILS % 0.4 % (0.0-1.0); EOSINOPHILS # (AUTO) 0.2 (0.0-0.4); EOSINOPHILS % 2.8 % (0.0-6.0); HEMOGLOBIN 6.8 g/dL (12.0-16.0); LYMPHOCYTES # (AUTO) 2.7 (1.0-3.2); LYMPHOCYTES % 36.2 % (18.0-39.1); MEAN CORPUSCULAR HEMOGLOBIN 30.6 pg (28-32); MEAN CORPUSCULAR HGB CONC 31.8 g/dL (31-35); MEAN CORPUSCULAR VOLUME 96.4 fL (81-99); MONOCYTES # (AUTO) 0.4 (0.2-0.8); MONOCYTES % 5.4 % (4.4-11.3); NEUTROPHILS # (AUTO) 4.1 (2.1-6.9); NEUTROPHILS % 54.9 % (38.7-80.0); PLATELET COUNT 511 x10e3/uL (140-360); RED BLOOD COUNT 2.22 x10e6/uL (3.6-5.1); RED CELL DISTRIBUTION WIDTH 13.1 % (11.7-14.4); WHITE BLOOD COUNT 7.43 x10e3/uL (4.8-10.8)
[2024-04-17 04:30] LABS: ALBUMIN 2.2 g/dL (3.5-5.0); ALBUMIN/GLOBULIN RATIO 0.7 (0.8-2.0); ANION GAP 15.9 mmol/L (8-16); BILIRUBIN,TOTAL 0.1 mg/dL (0.2-1.2); CALCIUM 8.3 mg/dL (8.4-10.2); POTASSIUM 4.9 mmol/L (3.5-5.1); TOTAL PROTEIN 5.5 g/dL (6.5-8.1)
[2024-04-17 04:34] LABS: HEMATOCRIT 21.4 % (34.2-44.1)
[2024-04-17 05:13] LABS: EOSINOPHILS # (AUTO) 0.2 (0.0-0.4); EOSINOPHILS % 3.2 % (0.0-6.0); LYMPHOCYTES # (AUTO) 2.7 (1.0-3.2); LYMPHOCYTES % 39.9 % (18.0-39.1); MEAN CORPUSCULAR HEMOGLOBIN 29.9 pg (28-32); MEAN CORPUSCULAR HGB CONC 30.6 g/dL (31-35); MEAN CORPUSCULAR VOLUME 97.5 fL (81-99); MONOCYTES # (AUTO) 0.4 (0.2-0.8); NEUTROPHILS # (AUTO) 3.5 (2.1-6.9); NEUTROPHILS % 50.6 % (38.7-80.0); RED BLOOD COUNT 2.01 x10e6/uL (3.6-5.1); WHITE BLOOD COUNT 6.85 x10e3/uL (4.8-10.8)
[2024-04-17 05:28] LABS: HEMATOCRIT 19.6 % (34.2-44.1); PLATELET COUNT 465 x10e3/uL (140-360)
[2024-04-17] MEDS: SODIUM CHLORIDE 0.9% 250ML 250 ML IV ONE ×2 (09:16)
[2024-04-17] MEDS: SODIUM CHLORIDE 0.9% 250ML 250 ML ONE (10:06)
[2024-04-17] MEDS: HYDRALAZINE HCL 100 MG TABLET PO PRN (10:56)
[2024-04-17] MEDS: SUCRALFATE 1 GM/10 ML SUSP NG SCH (16:30)
[2024-04-17 17:41] LABS: ANION GAP 13.1 mmol/L (8-16); CALCIUM 8.5 mg/dL (8.4-10.2); CREATININE, SERUM 0.87 mg/dL (0.57-1.11); POTASSIUM 5.1 mmol/L (3.5-5.1)
[2024-04-17] MEDS: AMITRIPTYLINE HCL 10 MG TAB PO SCH (20:22)
[2024-04-17] MEDS: TIZANIDINE HCL 4 MG TAB PO PRN (22:03)
[2024-04-18] VITALS (9 sets, daily range): BP systolic 140–167; BP diastolic 69–104; PULSE 76–80; RESP 18–20; TEMP 98.4–98.8; O2SAT 98–100
[2024-04-18 06:13] LABS: ANION GAP 12.9 mmol/L (8-16); CALCIUM 8.3 mg/dL (8.4-10.2); CREATININE, SERUM 0.81 mg/dL (0.57-1.11); POTASSIUM 4.9 mmol/L (3.5-5.1)
[2024-04-18 06:13] LABS: COMPLEMENT C3 165 mg/dL (82-167)
[2024-04-18 06:35] LABS: COMPLEMENT C4 34 mg/dL (12-38)
[2024-04-18] MEDS: PANTOPRAZOLE SOD 40 MG TABEC PO SCH (08:21)
[2024-04-18 09:29] LABS: FERRITIN 894.2 ng/mL (4.63-204.00)
[2024-04-18 13:06] LABS: BASOPHILS % 0.5 % (0.0-1.0); EOSINOPHILS # (AUTO) 0.4 (0.0-0.4); EOSINOPHILS % 4.1 % (0.0-6.0); HEMATOCRIT 27.8 % (34.2-44.1); LYMPHOCYTES # (AUTO) 3.2 (1.0-3.2); LYMPHOCYTES % 36.8 % (18.0-39.1); MEAN CORPUSCULAR HEMOGLOBIN 28.9 pg (28-32); MEAN CORPUSCULAR HGB CONC 32.4 g/dL (31-35); MEAN CORPUSCULAR VOLUME 89.4 fL (81-99); MONOCYTES # (AUTO) 0.6 (0.2-0.8); MONOCYTES % 7.4 % (4.4-11.3); NEUTROPHILS # (AUTO) 4.4 (2.1-6.9); NEUTROPHILS % 50.9 % (38.7-80.0); PLATELET COUNT 405 x10e3/uL (140-360); RED BLOOD COUNT 3.11 x10e6/uL (3.6-5.1); RED CELL DISTRIBUTION WIDTH 15.4 % (11.7-14.4); WHITE BLOOD COUNT 8.63 x10e3/uL (4.8-10.8)
[2024-04-19] VITALS (8 sets, daily range): BP systolic 130–161; BP diastolic 64–79; PULSE 76–82; RESP 17–18; TEMP 98.2–98.9; O2SAT 97–99
[2024-04-19] MEDS: FOLIC ACID 1 MG TAB PO SCH (10:38)
[2024-04-19] MEDS: CYANOCOBALAMIN INJ 1,000 MCG/ML VIAL IM SCH (10:38)
[2024-04-19] MEDS: KETOROLAC TROMETHAMINE 10 MG TAB PO PRN (16:54)
[2024-04-19 17:51] LABS: BASOPHILS % 0.3 % (0.0-1.0); EOSINOPHILS # (AUTO) 0.3 (0.0-0.4); EOSINOPHILS % 2.8 % (0.0-6.0); HEMATOCRIT 29.2 % (34.2-44.1); HEMOGLOBIN 9.6 g/dL (12.0-16.0); LYMPHOCYTES # (AUTO) 2.3 (1.0-3.2); LYMPHOCYTES % 23.4 % (18.0-39.1); MEAN CORPUSCULAR HEMOGLOBIN 29.4 pg (28-32); MEAN CORPUSCULAR HGB CONC 32.9 g/dL (31-35); MEAN CORPUSCULAR VOLUME 89.3 fL (81-99); MONOCYTES # (AUTO) 0.6 (0.2-0.8); MONOCYTES % 5.8 % (4.4-11.3); NEUTROPHILS # (AUTO) 6.7 (2.1-6.9); NEUTROPHILS % 67.2 % (38.7-80.0); PLATELET COUNT 460 x10e3/uL (140-360); RED BLOOD COUNT 3.27 x10e6/uL (3.6-5.1); RED CELL DISTRIBUTION WIDTH 14.6 % (11.7-14.4)
[2024-04-20] VITALS (8 sets, daily range): BP systolic 131–175; BP diastolic 67–80; PULSE 74–80; RESP 16–19; TEMP 98.5–98.6; O2SAT 95–99
[2024-04-20 05:39] LABS: BASOPHILS % 0.3 % (0.0-1.0); EOSINOPHILS # (AUTO) 0.3 (0.0-0.4); EOSINOPHILS % 4.3 % (0.0-6.0); HEMATOCRIT 26.9 % (34.2-44.1); HEMOGLOBIN 8.6 g/dL (12.0-16.0); LYMPHOCYTES # (AUTO) 2.2 (1.0-3.2); MEAN CORPUSCULAR HEMOGLOBIN 29.3 pg (28-32); MEAN CORPUSCULAR VOLUME 91.5 fL (81-99); MONOCYTES # (AUTO) 0.5 (0.2-0.8); MONOCYTES % 6.5 % (4.4-11.3); NEUTROPHILS # (AUTO) 4.4 (2.1-6.9); NEUTROPHILS % 58.5 % (38.7-80.0); PLATELET COUNT 398 x10e3/uL (140-360); RED BLOOD COUNT 2.94 x10e6/uL (3.6-5.1); RED CELL DISTRIBUTION WIDTH 14.6 % (11.7-14.4); WHITE BLOOD COUNT 7.44 x10e3/uL (4.8-10.8)
[2024-04-20 06:10] LABS: CALCIUM 8.5 mg/dL (8.4-10.2); CREATININE, SERUM 0.72 mg/dL (0.57-1.11)
[2024-04-20 06:26] LABS: POTASSIUM 4.6 mmol/L (3.5-5.1)
[2024-04-20] MEDS ORDERED: PEG (High)/E-LYTE SOLN 4,000 ML BTL PO ONE (07:30)
[2024-04-20] MEDS ORDERED: PEG (High)/E-LYTE SOLN 4,000 ML BTL PO PRN (08:30)
[2024-04-20 08:36] LABS: ANION GAP 14.6 mmol/L (8-16)
[2024-04-20] MEDS ORDERED: MINERAL OIL 30 ML CUP PO SCH (09:00)
[2024-04-20] MEDS: MINERAL OIL 30 ML CUP PO SCH (09:17)
[2024-04-20] MEDS: METHYLNALTREXONE BROMIDE 12 MG/0.6 ML VIAL SQ SCH (09:17)
[2024-04-21] VITALS (7 sets, daily range): BP systolic 146–158; BP diastolic 67–79; PULSE 75–80; RESP 17–18; TEMP 98.1–99; O2SAT 96–100
[2024-04-21] MEDS: Morphine 4mg INJECTION 4 MG/ML INJ IV PRN (17:56)
[2024-04-22] VITALS (7 sets, daily range): BP systolic 140–165; BP diastolic 66–78; PULSE 74–79; RESP 18–20; TEMP 98.1–98.7; O2SAT 98–100
[2024-04-22 09:09] LABS: BASOPHILS % 0.2 % (0.0-1.0); EOSINOPHILS # (AUTO) 0.4 (0.0-0.4); EOSINOPHILS % 4.8 % (0.0-6.0); LYMPHOCYTES # (AUTO) 2.6 (1.0-3.2); LYMPHOCYTES % 31.6 % (18.0-39.1); MEAN CORPUSCULAR HEMOGLOBIN 29.4 pg (28-32); MEAN CORPUSCULAR VOLUME 91.9 fL (81-99); MONOCYTES # (AUTO) 0.5 (0.2-0.8); MONOCYTES % 6.5 % (4.4-11.3); NEUTROPHILS # (AUTO) 4.6 (2.1-6.9); NEUTROPHILS % 56.7 % (38.7-80.0); PLATELET COUNT 367 x10e3/uL (140-360); RED BLOOD COUNT 2.72 x10e6/uL (3.6-5.1); RED CELL DISTRIBUTION WIDTH 14.6 % (11.7-14.4); WHITE BLOOD COUNT 8.14 x10e3/uL (4.8-10.8)
[2024-04-22 09:33] LABS: ANION GAP 11.1 mmol/L (8-16); CALCIUM 7.6 mg/dL (8.4-10.2); CREATININE, SERUM 0.64 mg/dL (0.57-1.11); POTASSIUM 5.1 mmol/L (3.5-5.1)
[2024-04-23 04:00] VITALS: BP 139/68; PULSE 76; RESP 18; TEMP 99; O2SAT 95
[2024-04-23 07:21] VITALS: BP 139/68; PULSE 76; RESP 18; TEMP 99; O2SAT 95
[2024-04-23 08:58] LABS: BASOPHILS % 0.4 % (0.0-1.0); EOSINOPHILS # (AUTO) 0.3 (0.0-0.4); EOSINOPHILS % 3.7 % (0.0-6.0); HEMATOCRIT 25.2 % (34.2-44.1); HEMOGLOBIN 8.4 g/dL (12.0-16.0); LYMPHOCYTES # (AUTO) 1.8 (1.0-3.2); LYMPHOCYTES % 21.4 % (18.0-39.1); MEAN CORPUSCULAR HEMOGLOBIN 30.2 pg (28-32); MEAN CORPUSCULAR HGB CONC 33.3 g/dL (31-35); MEAN CORPUSCULAR VOLUME 90.6 fL (81-99); MONOCYTES # (AUTO) 0.4 (0.2-0.8); NEUTROPHILS # (AUTO) 5.9 (2.1-6.9); NEUTROPHILS % 69.3 % (38.7-80.0); PLATELET COUNT 383 x10e3/uL (140-360); RED BLOOD COUNT 2.78 x10e6/uL (3.6-5.1); RED CELL DISTRIBUTION WIDTH 14.5 % (11.7-14.4); WHITE BLOOD COUNT 8.56 x10e3/uL (4.8-10.8)
[2024-04-23 09:20] LABS: ALBUMIN/GLOBULIN RATIO 0.7 (0.8-2.0); ANION GAP 9.2 mmol/L (8-16); BILIRUBIN,TOTAL 0.1 mg/dL (0.2-1.2); CALCIUM 7.6 mg/dL (8.4-10.2); CREATININE, SERUM 0.64 mg/dL (0.57-1.11); POTASSIUM 4.2 mmol/L (3.5-5.1); TOTAL PROTEIN 4.9 g/dL (6.5-8.1)
[2024-04-23 09:22] LABS: MAGNESIUM 1.4 MG/DL (1.3-2.1); PHOSPHORUS 3.6 MG/DL (2.3-4.7)
[2024-04-23 09:23] VITALS: BP 168/87; PULSE 80; RESP 19; TEMP 98.8; O2SAT 100
[2024-04-23 17:29] VITALS: BP 134/93; PULSE 74; RESP 19; TEMP 98.2; O2SAT 100
[2024-04-23 20:00] VITALS: BP 157/84; PULSE 76; RESP 20; TEMP 97.6; O2SAT 99
[2024-04-24] VITALS (7 sets, daily range): BP systolic 122–180; BP diastolic 74–97; PULSE 75–86; RESP 17–20; TEMP 97.9–99.1; O2SAT 98–100
[2024-04-24] MEDS ORDERED: IOPAMIDOL 370 MG/ML 100 ML INFUS..BTL INJ ONE ×2 (15:08→15:43)
[2024-04-24] MEDS ORDERED: SODIUM CHLORIDE 0.9% 500ML 500 ML ONE (15:08)
[2024-04-24] MEDS ORDERED: DIATRIZOATE MEGL/DIATRIZOA SOD 30 ML BTL PO ONE (15:08)
[2024-04-24 15:35] LABS: INR 0.97; PROTHROMBIN TIME 13.6 seconds (11.9-14.5)
[2024-04-24] MEDS ORDERED: MIDAZOLAM HCL 2 MG/2 ML VIAL ONE (15:47)
[2024-04-24] MEDS ORDERED: FENTANYL CITRATE/PF 100MCG/2 ML INJ ONE (15:48)
[2024-04-24] MEDS: MAGNESIUM SULFATE 2GM/50ML 50 ML IV ONE (17:42)
[2024-04-25] VITALS: BP 143/69; PULSE 79; RESP 18; TEMP 98.4; O2SAT 100
[2024-04-25 04:00] VITALS: BP 142/66; PULSE 77; RESP 18; TEMP 98.3; O2SAT 98
[2024-04-25 08:05] VITALS: BP 146/68; PULSE 77; RESP 18; TEMP 99.1; O2SAT 97
[2024-04-25 09:06] VITALS: BP 146/68; PULSE 77; RESP 18; TEMP 99.1; O2SAT 97
[2024-04-25 12:00] VITALS: BP 148/57; PULSE 80; RESP 18; TEMP 98.5; O2SAT 100
[2024-04-25] MEDS ORDERED: HEPARIN 500 UNITS/5ML MDV INJ ONE (13:15)
[2024-04-25] MEDS: HEPARIN 500 UNITS/5ML MDV INJ ONE (15:11)
== END 2024-04-25 15:51 | disposition home health service (06) | DRG 683 ==
LOC: ER 11:48 → ERHOLD 13:56 → MED/SURG2 15:35 → OBSVTOIN 04-15 16:01
PROVIDERS: ADMIT Internal Medicine; ATTEND Internal Medicine
PROC: 30233N1 Transfusion of Nonautologous Red Blood Cells into Peripheral Vein, Percutaneous Approach (ICD-10-PCS; principal; 2024-04-17)
PROC: 0D2DXUZ Change Feeding Device in Lower Intestinal Tract, External Approach (ICD-10-PCS; 2024-04-25)
DX: I12.9 Hypertensive chronic kidney disease with stage 1 through stage 4 chronic kidney disease, or unspecified chronic kidney disease (principal); E44.0 Moderate protein-calorie malnutrition; N17.9 Acute kidney failure, unspecified; K94.23 Gastrostomy malfunction; R10.9 Unspecified abdominal pain; M32.9 Systemic lupus erythematosus, unspecified; E11.22 Type 2 diabetes mellitus with diabetic chronic kidney disease; E11.43 Type 2 diabetes mellitus with diabetic autonomic (poly)neuropathy; N18.30 Chronic kidney disease, stage 3 unspecified; D63.1 Anemia in chronic kidney disease; K31.84 Gastroparesis; E87.5 Hyperkalemia; G89.4 Chronic pain syndrome; Z11.52 Encounter for screening for COVID-19; N20.0 Calculus of kidney; R33.9 Retention of urine, unspecified; K59.00 Constipation, unspecified; M06.9 Rheumatoid arthritis, unspecified; E66.9 Obesity, unspecified; Z68.29 Body mass index [BMI] 29.0-29.9, adult; Y83.3 Surgical operation with formation of external stoma as the cause of abnormal reaction of the patient, or of later complication, without mention of misadventure at the time of the procedure; Z79.4 Long term (current) use of insulin; Z79.52 Long term (current) use of systemic steroids; Z96.0 Presence of urogenital implants; Z95.810 Presence of automatic (implantable) cardiac defibrillator; Z90.49 Acquired absence of other specified parts of digestive tract; Z90.710 Acquired absence of both cervix and uterus; Z88.6 Allergy status to analgesic agent; Z88.2 Allergy status to sulfonamides; Z88.1 Allergy status to other antibiotic agents; Z91.048 Other nonmedicinal substance allergy status; Z88.8 Allergy status to other drugs, medicaments and biological substances; Z84.1 Family history of disorders of kidney and ureter
CPT/HCPCS: 36415; 49441; 74018; 74176; 74470; 80048; 80053; 81001; 82607; 82728; 82746; 82948; 83615; 83735; 84100; 85025; 85610; 86160; 86850; 86880; 86900; 86920; 87086; 99152; 99252; 99284; G0378; J0696; J2250; J2270; J2405; J3420; J3475; J7030; J7040; J7050; P9016; Q9963; Q9967; U0002